=== PATIENT | male | born 1955 | race Caucasian/White ===

== ENCOUNTER → 2021-04-03 17:05 | Outpatient (CLI) | payer MEDICARE, SELFPAY ==
[2021-04-03 18:23] LABS: Basophils # 0.1 K/mm3 (0-0.2); Eosinophils # 0.6 K/mm3 (0.0-0.4); Eosinophils % 5.5 % (0.1-12.0); Hematocrit 39.2 % (42.0-52.0); Hemoglobin 12.1 g/dL (14.1-18.0); Lymphocytes # 2.2 K/mm3 (0.7-4.5); Lymphocytes % 21.5 % (10-50); Mean Corpuscular HGB Conc 30.8 g/dL (31.8-35.4); Mean Corpuscular Hemoglobin 26.3 pg (27.0-31.2); Mean Corpuscular Volume 85.4 fl (80-94); Monocytes # 0.7 K/mm3 (0.1-1.0); Monocytes % 6.7 % (1.7-9.3); Neutrophils # 6.6 K/mm3 (1.8-7.8); Neutrophils % 65.3 % (37.0-80.0); Platelet Count 310 K/mm3 (142-424); Red Blood Count 4.59 M/mm3 (4.60-6.20); Red Cell Distribution Width 18.1 % (11.5-17.5); White Blood Count 10.1 K/mm3 (4.8-10.8)
[2021-04-03 19:02] LABS: Alanine Aminotransferase 22 U/L (12-78); Albumin Level 4.5 g/dl (3.5-5.0); Alkaline Phosphatase 122 U/L (38-126); Anion Gap 17.4 mEq/L (5-15); Aspartate Amino Transferase 31 U/L (17-59); Bilirubin,Total 0.4 mg/dl (0.2-1.3); Blood Urea Nitrogen 18 mg/dl (9-20); Calcium 9.9 mg/dl (8.4-10.2); Carbon Dioxide 24 mmol/L (22.0-30.0); Chloride 105 mmol/L (98-107); Chol/HDL Ratio 3.6 (1-3.5); Cholesterol 140 mg/dl (140-200); Estimated Glomerular Filt Rate 74 ml/min (>60); GFR (African American) 90 ML/MIN (>60); Globulin 4.4 g/dL (1.3-3.2); Glucose 86 mg/dl (74-100); HDL Cholesterol 39 mg/dl (40-60); Potassium 4.4 mmoL/L (3.5-5.1); Sodium 142 mmol/L (136-145); Total Protein,Serum 8.9 g/dl (6.3-8.2); Triglycerides 140 mg/dl (30-150); VLDL Cholesterol 28 mg/dL (0-40)
[2021-04-03 19:12] LABS: Direct LDL Cholesterol 61.49 mg/dL (100-129)
[2021-04-03 19:23] LABS: Prothrombin Time 52.4 seconds (10.1-12.5)
[2021-04-03 21:29] LABS: Thyroid Stimulating Hormone 2.15 uIU/mL (0.465-4.68)
== END ==
PROVIDERS: Visit Provider Internal Medicine Adolescent Medicine
DX: E11.9 Type 2 diabetes mellitus without complications (principal); E78.5 Hyperlipidemia, unspecified; Z51.81 Encounter for therapeutic drug level monitoring; Z79.01 Long term (current) use of anticoagulants; Z95.2 Presence of prosthetic heart valve
CPT/HCPCS: 80053; 80061; 84443; 85025; 85610

== ENCOUNTER 2021-04-17 14:33 | Outpatient (CLI) | payer MEDICARE, SELFPAY ==
[2021-04-17 15:30] LABS: PHA INR Fingerstick 1.6 (0.9-1.1)
== END 2021-04-17 15:32 | disposition home or self-care (01) ==
LOC: ACC 14:43
PROVIDERS: PCP Internal Medicine Adolescent Medicine; Visit Provider Internal Medicine Adolescent Medicine
DX: Z51.81 Encounter for therapeutic drug level monitoring (principal); Z79.01 Long term (current) use of anticoagulants; I48.91 Unspecified atrial fibrillation; Z95.2 Presence of prosthetic heart valve
CPT/HCPCS: 85610; 99211; G0463

== ENCOUNTER 2021-04-21 14:29 | Outpatient (CLI) | payer MEDICARE, SELFPAY ==
[2021-04-21 15:02] LABS: PHA INR Fingerstick 2.4 (0.9-1.1)
== END 2021-04-21 15:13 | disposition home or self-care (01) ==
LOC: ACC 14:30
PROVIDERS: PCP Internal Medicine Adolescent Medicine; Visit Provider Internal Medicine Adolescent Medicine
DX: Z51.81 Encounter for therapeutic drug level monitoring (principal); Z79.01 Long term (current) use of anticoagulants
CPT/HCPCS: 85610; 99211; G0463

== ENCOUNTER 2021-04-28 14:24 | Outpatient (CLI) | payer MEDICARE, SELFPAY ==
[2021-04-28 15:46] LABS: PHA INR Fingerstick 2.4 (0.9-1.1)
== END 2021-04-28 15:52 | disposition home or self-care (01) ==
LOC: ACC 14:25
PROVIDERS: PCP Internal Medicine Adolescent Medicine; Visit Provider Internal Medicine Adolescent Medicine
DX: Z51.81 Encounter for therapeutic drug level monitoring (principal); Z79.01 Long term (current) use of anticoagulants
CPT/HCPCS: 85610; 99211; G0463

== ENCOUNTER → 2021-05-12 07:24 | Outpatient (CLI) | payer MEDICARE, SELFPAY ==
--- NOTE | 2021-05-12 07:28 | CT_ITS ---
PROCEDURE: CT LUNG SCREENING CLINICAL INDICATION: H/O NICOTINE DEPENDENCE Current smoker 100 pack year smoking history COMPARISON: No exams were available for comparison TECHNIQUE: The exam was performed on a GE Light Speed [address] scanner using 2.90 mGy CTDI. A low dose helical CT CHEST was performed on a multi-detector scanner. All CT scans at the facility use one or more dose reduction, viz: automated exposure control, ma/kV adjustment per patient size (including targeted exams where dose is matched to indication, i.e. head), or iterative reconstruction technique. The LDCT was performed in a facility that meets the criteria for the screening program. Data regarding this exam was submitted to ACR which is an approved registry. The order for this exam indicates that it came as a result of a lung cancer screening counseling shard decision-making visit that included all the elements required of such a visit including smoking cessation. The radiologist interpreting this exam meets the CMS criteria for the LDCT lung cancer screening program. The exam is reported using the Lung-RADS classification scale and reported to the ACR registry. NOTE: This study was performed for the specific purposes of lung cancer screening and is not an alternative to diagnostic chest CT. RADIATION DOSE: CTDI vol(CT dose Index-volume) = 2.90mG DLP (Dose Length Product) = 118.29 mGcm FINDINGS: COPD changes with paraseptal and centrilobular emphysema. There is scattered areas of scarring. Minimal bronchiectasis right lower lobe posteriorly in an area scarring/volume loss. No suspicious nodules. There is a mildly prominent precarinal lymph node at 1.7 x 1 cm. 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 OTHER FINDINGS: Motion artifact somewhat obscures evaluation of the upper abdomen. There are old right-sided rib fractures. IMPRESSION: Lung-RADS Category 2 Benign Appearance or Behavior Follow-up: Continue annual screening with LDCT in 12 months Mildly prominent precarinal lymph node. Follow-up suggested based on clinical parameters. Dictated by: Marc Gill MD 05/22/2021 08:32 Marc Gill MD in [place] 05/22/2021 08:32
--- NOTE | 2021-05-12 07:28 | US_ITS ---
PROCEDURE: US ABD. AORTA SCREENING CLINICAL INDICATION: H/O NICOTINE DEPENDENCE COMPARISON: CT CT LUNG SCREENING from 05/12/2021 FINDINGS: There is mild fusiform dilatation of the mid abdominal aorta at 2 cm. There is mild amount of atheromatous plaque within the abdominal aorta. The distal abdominal aorta measures 1.5 cm. Proximal common iliacs are unremarkable. IMPRESSION: Minimal dilatation of the mid abdominal aorta at 2 cm otherwise negative Dictated by: Marc Gill MD 05/12/2021 13:42 Marc Gill MD in [place] 05/12/2021 13:42
== END ==
PROVIDERS: PCP Internal Medicine Adolescent Medicine; Visit Provider Internal Medicine Adolescent Medicine
DX: Z87.891 Personal history of nicotine dependence (principal)
CPT/HCPCS: 71271; 76705

== ENCOUNTER 2021-05-12 14:26 | Outpatient (CLI) | payer MEDICARE, SELFPAY ==
[2021-05-12 18:00] LABS: PHA INR Fingerstick 2.6 (0.9-1.1)
== END 2021-05-12 18:02 | disposition home or self-care (01) ==
LOC: ACC 14:29
PROVIDERS: PCP Internal Medicine Adolescent Medicine; Visit Provider Internal Medicine Adolescent Medicine
DX: Z87.891 Personal history of nicotine dependence (principal); Z12.2 Encounter for screening for malignant neoplasm of respiratory organs; Z51.81 Encounter for therapeutic drug level monitoring; Z79.01 Long term (current) use of anticoagulants
CPT/HCPCS: 71271; 76705; 85610; 99211; G0463

== ENCOUNTER 2021-06-22 18:52 | Emergency (ER) | payer MEDICARE, SELFPAY ==
[2021-06-22 20:00] VITALS: BP 119/83; PULSE 97; RESP 18; TEMP 36.9; O2SAT 95; BMI 27.7
--- NOTE | 2021-06-22 20:45 | HMH.EDUTC ---
[facility] Disposition Clinical Impression: Exposure to COVID-19 virus Disposition: Home, Self-Care Condition on Discharge: Good Instructions: DI for COVID-19 (Suspected or Confirmed ), Preventing the Spread of Coronavirus Discharge Instructions Additional Instructions: *Monitor Temp, Over the counter Motrin or Tylenol as directed/as needed Tylenol every 4 hours and Motrin every 6 hours (as long as your family doctor has told you that you can take it) for fever or pain. and straight to ER if unable to lower temp less than 101.0 after medication given Follow up IMMEDIATELY for new or worsening symptoms or no Noticeable improvement over the next 48-72 hours. 911 for difficulty breathing or swallowing You were tested for today for COVID19 your test result should be back in the next 24-48 hours, you was given handout on [facility] portal where you can review your results if you do not have internet access you may call the [facility] You was given a handout with instructions for Self Quarantine and Self isolation for while you wait on test results and what to do if they are positive If you are positive the Health Dept will be contacting you also Make sure to take your Vitamins Vit. C Vit D and Zinc if you can take them Referrals: Mynor Hoffman MD [Primary Care Provider] - As needed Time of Disposition: 20:47 Medical Decision Making - Roman Inquiry Pt receiving controlled substance: No Roman was queried for this patient: No Vital Signs: 06/22/21 20:00 Temperature 98.4 F Temperature Source Oral Pulse Rate [Right Brachial] 97 H Respiratory Rate 18 Blood Pressure [Right Arm] 119/83 Blood Pressure Mean [Right Arm] 95 Blood Pressure Source [Right Arm] Automatic Cuff Blood Pressure Position [Right Arm] Sitting 02 Sat by Pulse Oximetry 95 Oxygen Delivery Method Room Air Orders (Tests/Meds): ORDERS Category Date Time Status Covid-19 Nasal PCR ([facility]) Routine Lab 06/22/21 20:34 Received [facility] HPI - General Stated complaint: covid test. BOURNE, awa, runny nose Time Seen by Provider: 06/22/21 20:45 Mode of Arrival: Ambulatory Source of Information: Patient Limitations: No Limitations Description of Symptoms (Recalled from Triage Doc. by RN): COVID TEST D/T EXPOSURE. HEENT Symptoms (Recalled from RN notes): No Resp Symptoms (Recalled from RN notes): No Skin Symptoms (Recalled from RN notes): No MS Symptoms (Recalled from RN notes): No Functional Status (Recalled from RN notes): wnl - History of Present Illness Provider Complaint: Patient states that several people in the house have tested positive for COVID State that he is not having any symptoms but wanted to get tested due to others being positive - Related Data Home Medications Medication Instructions Recorded Confirmed Acetaminophen [Tylenol 500mg 1,000 mg PO BID 04/17/21 04/17/21 tablet] Furosemide [Lasix 20mg tab] 10 mg PO DAILY 04/17/21 04/17/21 Metoprolol Tartrate [Lopressor 12.5 mg PO BID 04/17/21 04/17/21 25mg tablet] Sitagliptin Phosphate [Januvia 50 mg PO DAILY 04/17/21 04/17/21 50mg tablet] Warfarin Sodium [Coumadin 5mg 10 mg PO DAILY 04/17/21 04/17/21 tablet] buPROPion HCL [Wellbutrin XL] 300 mg PO DAILY 04/17/21 04/17/21 Allergies Allergy/AdvReac Type Severity Reaction Status Date / Time No Known Allergies Allergy Verified 06/22/21 20:34 - Worker's Comp Is this a Worker's Comp case?: No [facility] History - Hepatitis A Screen Drug use history?: No High risk sexual behaviors?: No History of sexually transmitted infection?: No Currently employed?: No Childcare worker?: No Do you have indoor plumbing?: Yes Do you have electricity?: Yes Attestation statement:: This patient has been screened for Hepatitis A risk factors. ROS Obtained: Yes All systems reviewed & no additional complaints, Yes Systems reviewed as appropriate & no additional complaints - Constitutional Constitutional: Reports system reviewed and n
[2021-06-22 20:51] VITALS: BP 119/83; PULSE 97; RESP 18; TEMP 36.9; O2SAT 95
== END 2021-06-22 20:57 | disposition home or self-care (01) ==
PROVIDERS: Emergency Provider Nurse Practitioner; PCP Internal Medicine Adolescent Medicine
DX: U07.1 COVID-19 (principal)
CPT/HCPCS: G0463; 99202; U0003

== ENCOUNTER 2021-07-03 12:23 | Inpatient (IN) | payer MEDICARE, SELFPAY ==
[2021-07-03] VITALS (18 sets, daily range): BP systolic 92–149; BP diastolic 50–99; PULSE 103–144; RESP 20–40; TEMP 37.7–37.9; O2SAT 87–93; BMI 25.1; BMI 26.4; BMI 28.6
--- NOTE | 2021-07-03 12:18 | ECG_ITS ---
APPROVED REPORT Exam: Resting ECG HR:148 bpm ECG Measurements Heart Rate 148 AXES QRSd 86 QRS -46 QT 254 T 44 QTc 398 Conclusion Atrial fibrillation with rapid ventricular response with premature ventricular or aberrantly conducted complexes Left axis deviation Pulmonary disease pattern Nonspecific ST and T wave abnormality Abnormal ECG Electronically signed by : Mynor Hoffman MD 07/04/2021 17:35:41
--- NOTE | 2021-07-03 12:30 | XR_ITS ---
PROCEDURE: XR CHEST PORTABLE CLINICAL HISTORY: sob COMPARISON: CT CT LUNG SCREENING from 05/12/2021 FINDINGS: Prior median sternotomy with aortic valve replacement. Cardiomegaly without failure. Small area of increased density is present in the right lung base suggesting an area of infiltrate. Suggest following till clear . There is an old fracture the right 6th rib IMPRESSION: Right basilar infiltrate Dictated by: Marc Gill MD 07/03/2021 14:03 Marc Gill MD in [place] 07/03/2021 14:03
[2021-07-03 12:38] LABS: Basophils # 0.1 K/mm3 (0-0.2); Basophils % 0.5 % (0.1-2.0); Eosinophils # 0.1 K/mm3 (0.0-0.4); Eosinophils % 1.1 % (0.1-12.0); Hematocrit 44.6 % (42.0-52.0); Hemoglobin 14.9 g/dL (14.1-18.0); Lymphocytes # 0.5 K/mm3 (0.7-4.5); Lymphocytes % 3.7 % (10-50); Mean Corpuscular HGB Conc 33.5 g/dL (31.8-35.4); Mean Corpuscular Hemoglobin 29.7 pg (27.0-31.2); Mean Corpuscular Volume 88.5 fl (80-94); Mean Platelet Volume 9.5 fl (7.4-10.4); Monocytes # 0.4 K/mm3 (0.1-1.0); Monocytes % 3.1 % (1.7-9.3); Neutrophils # 12.2 K/mm3 (1.8-7.8); Neutrophils % 91.7 % (37.0-80.0); Platelet Count 213 K/mm3 (142-424); Red Blood Count 5.03 M/mm3 (4.60-6.20); Red Cell Distribution Width 17.5 % (11.5-17.5); White Blood Count 13.3 K/mm3 (4.8-10.8)
[2021-07-03 12:39] LABS: MANUAL DIFFERENTIAL MANUAL DIFFERENTIAL (MANUAL DIFF)
[2021-07-03 12:55] LABS: Eosinophils % 3 % (0-3); Lymphocytes % 8 % (10-50); Monocytes % 2 % (2-9); Neutrophils % 83 % (42-76); Platelet Estimate Normal; Total Cells Counted 100
[2021-07-03 12:56] LABS: Hypochromasia 1+
--- NOTE | 2021-07-03 12:57 | HMH.EDGENADL ---
ED Disposition Clinical Impression: Pneumonia due to COVID-19 virus, Supratherapeutic INR, Atrial fibrillation with RVR Pancreatitis Qualifiers: Chronicity: acute Pancreatitis type: other Acute pancreatitis complication: unspecified Qualified Code(s): K85.80 - Other acute pancreatitis without necrosis or infection CHF exacerbation Qualifiers: Heart failure type: unspecified Qualified Code(s): I50.9 - Heart failure, unspecified Disposition: Admitted As Inpatient Condition on Discharge: Fair Time of Disposition: 18:13 - Critical Care Critical Care Time: Yes Attestation: On , the high probability of a clinically significant, sudden or life threatening deterioration of the following system(s) required my full and direct attention, intervention and personal management. The time I documented below is in addition to time spent performing reported procedures but includes the following listed in this critical care notation. Total Critical Care Time: 35 Vital system(s) involved:: Circulatory Failure, Respiratory Failure My critical care processes included: Assessment & monitoring of V/S, Initial and Re-exams, Data Review/Interpretation, Coordinating Care, Medication Orders and management, Documentation Medical Decision Making - Medical Records Medical records reviewed: Yes: I reviewed the patient's medical records. - Roman Inquiry Pt receiving controlled substance: No Vital Signs: 07/03/21 12:23 07/03/21 13:00 07/03/21 13:30 Temperature 100.3 F H Temperature Source Oral Pulse Rate 120 H 122 H Pulse Rate [Right] 144 H Respiratory Rate 32 H 32 H 36 H Blood Pressure 125/79 121/99 H Blood Pressure [Right Arm] 143/77 H Blood Pressure Mean 94 106 Blood Pressure Mean [Right Arm] 99 02 Sat by Pulse Oximetry 93 L 92 L 92 L Oxygen Delivery Method Room Air Oxygen Flow Rate (LPM) 07/03/21 13:45 07/03/21 14:00 07/03/21 14:15 Temperature Temperature Source Pulse Rate 122 H 132 H 134 H Pulse Rate [Right] Respiratory Rate 38 H 34 H 34 H Blood Pressure 142/88 H 145/79 H 133/86 Blood Pressure [Right Arm] Blood Pressure Mean 102 101 108 Blood Pressure Mean [Right Arm] 02 Sat by Pulse Oximetry 92 L 91 L 91 L Oxygen Delivery Method Oxygen Flow Rate (LPM) 07/03/21 16:46 Temperature Temperature Source Pulse Rate 125 H Pulse Rate [Right] Respiratory Rate 40 H Blood Pressure 135/82 Blood Pressure [Right Arm] Blood Pressure Mean Blood Pressure Mean [Right Arm] 02 Sat by Pulse Oximetry 91 L Oxygen Delivery Method Nasal Cannula Oxygen Flow Rate (LPM) 4 - Lab Data Lab results reviewed: Yes: I reviewed the patient's lab results. Lab Results 07/03/21 12:25: WBC 13.3 H, RBC 5.03, Hgb 14.9, Hct 44.6, MCV 88.5, MCH 29.7, MCHC 33.5, RDW 17.5, Plt Count 213, MPV 9.5, Neut % (Auto) 91.7 H, Lymph % (Auto) 3.7 L, [place] % (Auto) 3.1, Eos % (Auto) 1.1, Baso % (Auto) 0.5, Neut # (Auto) 12.2 H, Lymph # (Auto) 0.5 L, [place] # (Auto) 0.4, Eos # (Auto) 0.1, Baso # (Auto) 0.1, Total Counted 100, Neutrophils % (Manual) 83 H, Band Neutrophils % 4.0, Lymphocytes % (Manual) 8 L, Monocytes % (Manual) 2, Eosinophils % (Manual) 3, Platelet Estimate Normal, Hypochromasia 1+ 07/03/21 13:18: Sodium 138, Potassium 4.0, Chloride 104, Carbon Dioxide 21 L, Anion Gap 17.0 H, BUN 28 H, Creatinine 1.20, Estimated Creat Clear 72, Estimated GFR 60, Est GFR ( Amer) 73, Glucose 146 H, Calcium 8.9, Total Bilirubin 0.7, AST 68 H, ALT 36, Alkaline Phosphatase 91, Total Protein 8.0, Albumin 3.7, Globulin 4.3 H, Albumin/Globulin Ratio 0.9 L, Lipase 406 H 07/03/21 13:18: Troponin I 0.03 07/03/21 13:31: SARS-CoV-2 (PCR) Detected A, Influenza A Untype (PCR) Not detected, Influenza Type B (PCR) Not detected 07/03/21 13:40: PT 46.1 H, INR 4.36 H 07/03/21 14:00: NT-Pro-B Natriuret Pep 1370 H Result diagrams: 07/03/21 12:25 07/03/21 13:18 Orders (Tests/Meds): ED MEDICATIONS Generic Name Dose Route Start Last Admin
[2021-07-03 13:31] LABS: Alanine Aminotransferase 36 U/L (12-78); Albumin Level 3.7 g/dl (3.5-5.0); Albumin/Globulin Ratio 0.9 (1.1-1.8); Alkaline Phosphatase 91 U/L (38-126); Aspartate Amino Transferase 68 U/L (17-59); Bilirubin,Total 0.7 mg/dl (0.2-1.3); Blood Urea Nitrogen 28 mg/dl (9-20); Calcium 8.9 mg/dl (8.4-10.2); Carbon Dioxide 21 mmol/L (22.0-30.0); Chloride 104 mmol/L (98-107); Creatinine Clearance Estimated 72 mL/min (50-200); Estimated Glomerular Filt Rate 60 ml/min (>60); GFR (African American) 73 ML/MIN (>60); Globulin 4.3 g/dL (1.3-3.2); Glucose 146 mg/dl (74-100); Lipase 406 U/L (23-300); Sodium 138 mmol/L (136-145)
[2021-07-03 13:53] LABS: Influenza A, PCR Not Detected (NotDetected); Influenza B, PCR Not Detected (NotDetected)
--- NOTE | 2021-07-03 13:58 | CT_ITS ---
PROCEDURE: CT ANGIO CHEST PE PROTOCOL CLINCIAL INDICATION: ams Covid19 COMPARISON: CT CT LUNG SCREENING from 05/12/2021 TECHNIQUE: IV Contrast: 70ML Isovue 370 Axial images obtained with sagittal and coronal reformats. All CT scans at the facility use one or more dose reduction, viz: automated exposure control, ma/kV adjustment per patient size (including targeted exams where dose is matched to indication, i.e. head), or iterative reconstruction technique. FINDINGS: HEART AND MEDIASTINAL STRUCTURES: Mildly enlarged mediastinal lymph nodes measuring up to 2.7 by 1.8 cm in the precarinal region and 2.9 x 2 cm in the subcarinal area. No evidence of pulmonary embolus, aortic aneurysm, or aortic dissection.. Prior aortic valve replacement. Coronary artery calcifications are present. LUNGS AND PLEURAL SPACES: Centrilobular and paraseptal emphysema. There is dense consolidation in the lower lobes posteriorly and inferiorly on both sides as well as the superior segment of the right lower lobe, and a small area of consolidation in the left upper lobe centrally. No effusions. BONY STRUCTURES: Old fractures involve the right 4th through 10th ribs. UPPER ABDOMEN: Unremarkable. ADDITIONAL FINDINGS: No other significant abnormalities. IMPRESSION: Bilateral pneumonia involving the superior segment of the right lower lobe and the lung bases posteriorly on both sides as well as left perihilar region with COPD and centrilobular and paraseptal emphysema. The overall findings are not typical for what we normally see for Covid19 pneumonia although that entity is a consideration. Aspiration pneumonia would be a consideration as well. Mediastinal adenopathy Dictated by: Marc Gill MD 07/03/2021 17:02 Marc Gill MD in [place] 07/03/2021 17:02
--- NOTE | 2021-07-03 13:58 | CT_ITS ---
PROCEDURE: CT ABDOMEN PELVIS W CON CLINICAL INDICATION: elevated lipase COMPARISON: CT CT ANGIO CHEST PE PROTOCOL from 07/03/2021 TECHNIQUE: IV Contrast: 75ML Isovue 370 Oral Contrast None Axial images obtained with sagittal and coronal reformats. All CT scans at the facility use one or more dose reduction, viz: automated exposure control, ma/kV adjustment per patient size (including targeted exams where dose is matched to indication, i.e. head), or iterative reconstruction technique. FINDINGS: Cardiomegaly. Prior aortic valve replacement. Coronary artery calcifications and/or stents noted as well as mitral valve annular calcification. Consolidation is present in both lung bases posteriorly. Prior cholecystectomy. Beam hardening artifact is present from the patient's arms down by his side. Left adrenal gland is slightly enlarged maintaining an adrenal form shape. The right adrenal gland is unremarkable. There is mild stranding of the fat posterior to the tail the pancreas which may indicate mild pancreatitis. No evidence of pancreatic necrosis.. No renal or ureteral calculi. No hydrocephalus. The appendix is not clearly delineated. No evidence of appendicitis. Fluid-filled loops of small and large bowel are present which may indicate enterocolitis or diarrhea disease. No pelvic mass or abnormal fluid collection. No acute bony anomalies. There is mild dilatation of the infrarenal abdominal aorta at the L3-L4 level at 3 cm. No acute bony anomalies. There is fusion of the SI joints. Osteoarthritic changes are present in the hips IMPRESSION: Mild stranding of the fat posterior to the tail the pancreas which may indicate mild pancreatitis. Fluid-filled loops of large and small bowel nondistended which may indicate intra colitis/diarrhea disease Bilateral lower lobe pneumonia Other nonacute findings as described above Dictated by: Marc Gill MD 07/03/2021 17:12 Macr Gill MD in [place] 07/03/2021 17:12
--- NOTE | 2021-07-03 14:01 | PC.NURSE ---
DILTIAZEM GTT TITRATED UP TO 10MG/HR.
[2021-07-03 14:14] LABS: INR 4.36 (0.9-1.1)
--- NOTE | 2021-07-03 14:14 | PC.NURSE ---
LAB CALLED WITH CRITICALS OF PT 46.1 AWARE
--- NOTE | 2021-07-03 14:15 | PC.NURSE ---
RAD CALLED & NOTIFIED OF NEW CTA LINE TO [facility].
[2021-07-03 14:16] LABS: Prothrombin Time 46.1 seconds (10.1-12.5)
--- NOTE | 2021-07-03 14:20 | PC.NURSE ---
CRITICAL LAB VALUE PTINR, DR TY NOTIFIED.
[2021-07-03 14:23] LABS: Troponin I 0.03 ng/ml (0.00-0.034)
--- NOTE | 2021-07-03 14:29 | PC.NURSE ---
PT TO CT SCANNER VIA STRETCHER AT THIS TIME.
[2021-07-03 14:48] LABS: Coronavirus 19, PCR Detected (NotDetected)
--- NOTE | 2021-07-03 15:45 | PC.NURSE ---
3RD PIV PLACED IN RIGHT AC FOR CTA.
--- NOTE | 2021-07-03 16:02 | PC.NURSE ---
PT TO CT SCANNER
--- NOTE | 2021-07-03 16:35 | PC.NURSE ---
PT BACK FROM CT
--- NOTE | 2021-07-03 16:48 | PC.NURSE ---
pt maxed out on diltiazem gtt at 15mg/hr, oxygen 91% on 4L nasal cannula, Dr. Flores notified.
[2021-07-03 17:25] LABS: NT Pro Brain Natriuretic Pep. 1370 pg/mL (0-125)
--- NOTE | 2021-07-03 17:40 | PC.NURSE ---
speaking with Dr Alvarado
--- NOTE | 2021-07-03 17:48 | PC.NURSE ---
Speaking to MD about admission
[2021-07-03 17:58] LABS: Troponin I 0.05 ng/ml (0.00-0.034)
--- NOTE | 2021-07-03 18:28 | PC.NURSE ---
romana reyna placed per dr. ruiz
--- NOTE | 2021-07-03 18:40 | PC.NURSE ---
REPORT GIVEN MALATHI.
[2021-07-03 19:10] LABS: C-Reactive Protein 181.7 mg/L (0-4)
[2021-07-03 19:37] LABS: Ferritin 410 ng/ml (17.9-464)
--- NOTE | 2021-07-03 19:40 | PC.NURSE ---
PT ARRIVED TO FLOOR VIA STRETCHER FROM ED W/STAFF AT 1939
[2021-07-03 21:26] LABS: Troponin I 0.08 ng/ml (0.00-0.034)
[2021-07-03 22:18] LABS: POC Glucose,Bedside 111 (70-110)
[2021-07-04] VITALS (22 sets, daily range): BP systolic 73–134; BP diastolic 39–86; PULSE 66–120; RESP 18–24; TEMP 36.4–37; O2SAT 90–96; BMI 29.3
--- NOTE | 2021-07-04 06:05 | PC.NURSE ---
pt unable to confirm medication doses and when last taken
[2021-07-04 06:35] LABS: POC Glucose,Bedside 119 (70-110)
--- NOTE | 2021-07-04 06:56 | PC.NURSE ---
pt alert only to self, pt not able to provide much information for admission, has been awake most of shift and has remained on 6L NC t/o shift with sats 88-95% 1940 cardizem drip at 15 mL/hr upon arrival to floor 0000 cardizem drip increased to 20 mL/hr 0230 cardizem drip decreased back to 15 mL/hr 0500 cardizem drip decrased to 10 mL/hr
[2021-07-04 07:09] LABS: Basophils # 0.1 K/mm3 (0-0.2); Basophils % 0.4 % (0.1-2.0); Lymphocytes # 0.6 K/mm3 (0.7-4.5); Lymphocytes % 3.3 % (10-50); Mean Corpuscular HGB Conc 32.4 g/dL (31.8-35.4); Mean Corpuscular Hemoglobin 28.5 pg (27.0-31.2); Mean Corpuscular Volume 88.1 fl (80-94); Mean Platelet Volume 9.7 fl (7.4-10.4); Monocytes # 0.4 K/mm3 (0.1-1.0); Monocytes % 2.4 % (1.7-9.3); Neutrophils # 16.6 K/mm3 (1.8-7.8); Neutrophils % 93.9 % (37.0-80.0); Platelet Count 212 K/mm3 (142-424); Red Blood Count 4.54 M/mm3 (4.60-6.20); Red Cell Distribution Width 18.3 % (11.5-17.5); White Blood Count 17.6 K/mm3 (4.8-10.8)
[2021-07-04 07:10] LABS: Alanine Aminotransferase 33 U/L (12-78); Albumin Level 3.2 g/dl (3.5-5.0); Albumin/Globulin Ratio 0.8 (1.1-1.8); Alkaline Phosphatase 69 U/L (38-126); Aspartate Amino Transferase 73 U/L (17-59); Bilirubin,Total 0.9 mg/dl (0.2-1.3); Blood Urea Nitrogen 40 mg/dl (9-20); Calcium 8.7 mg/dl (8.4-10.2); Carbon Dioxide 16 mmol/L (22.0-30.0); Chloride 105 mmol/L (98-107); Creatinine Clearance Estimated 56 mL/min (50-200); Estimated Glomerular Filt Rate 40 ml/min (>60); GFR (African American) 49 ML/MIN (>60); Glucose 113 mg/dl (74-100); Sodium 137 mmol/L (136-145); Total Protein,Serum 7.2 g/dl (6.3-8.2)
--- NOTE | 2021-07-04 07:16 | HMH.HP ---
*Admission Date: 07/03/21 *Chief complaint: Short of breath, COVID *History of present illness: Mr. Lynne is a 66-year-old male with multiple comorbidities who was sent to the ER from home yesterday via EMS due to worsening diarrhea, debility, shortness of breath. Of note, he was initially diagnosed with COVID-19 on 06/22/21 along with several other family members. He presented to the ER with no family however in speaking to his stepdaughter, he has been dealing with cough, poor appetite, diarrhea and dehydration at home. Was falling out of his chair and became too much for her to care for at home. This led to her having EMS bring him to the ER for further assessment. For some time they have questioned the need for him to be placed in a fci given his baseline debility and dependence on motorized wheelchair for movement. On arrival to the ER he was found to be in A. fib with RVR, initial labs concerning for pancreatitis, sepsis, Covid positive still. Treated with diltiazem drip and IV bolus. After labs returned, found to have elevated BNP so he was diuresed x1. Chest CT and CTA both obtained, findings revealed focal pneumonia concerning for superimposed bacterial pneumonia on Covid pneumonia. Admitted to medicine for further management. On assessment this morning, he is pleasant and oriented to self. States he wants everything done to keep him alive (full code). Denies nausea or vomiting. Denies abdominal pain or chest pain that is acute. Having diarrhea this morning on exam. Saturations in the mid 90s on 6 L nasal cannula oxygen. Heart rate in the 90s to low 100s on diltiazem drip. Per review of chart and discussion with family, patient previously on metoprolol for heart rate control. Has a mechanical valve, on warfarin with goal INR 2.5-3.5. Supratherapeutic on admission. [facility] History I have reviewed the patient's past medical history: Yes Medical History: Reports:: Atrial Fibrillation, Congestive Heart Failure, Chronic Obstructive Pulmonary Disease (COPD), Coronary Artery Disease, Dementia, Diabetes Mellitus Type 2 Denies:: Cancer, Diabetes Mellitus Type 1, Home Oxygen, MRSA *Have you ever received a pneumonia vaccine?: No *Have you received a flu vaccine this season?: No Amputation: No - *Social History Smoking Status: Former smoker # Packs/Day (cigarettes): 1 Alcohol Intake: never *Occupational Status:: retired *Travel in the last 8 weeks: None Family Hx:: Unable to obtain Review of Systems - Review of Systems Review of systems:: pertinent systems reviewed and negative unless documented below (14 point review of systems performed, pertinent positives and negatives as per HPI) Meds Home Medications Medication Instructions Recorded Confirmed Type Warfarin Sodium [Coumadin 5mg 10 mg PO DAILY 04/17/21 07/04/21 History tablet] buPROPion HCL [Wellbutrin XL] 300 mg PO DAILY 04/17/21 07/04/21 History Atorvastatin Calcium [Lipitor 40mg 40 mg PO HS 07/03/21 07/04/21 History Tab] Furosemide [Furosemide 20mg Tab*] 20 mg PO DAILY 07/03/21 07/04/21 History Sitagliptin Phosphate [Januvia 100 mg PO DAILY 07/03/21 07/04/21 History 100mg tablet] Fluticasone/Umeclidin/Vilanter 1 puff IH DAILY 07/04/21 07/04/21 History [Trelegy Ellipta 100-62.5-25] lisinopriL [Zestril 10mg Tab] 10 mg PO DAILY 07/04/21 07/04/21 History Allergies Allergy/AdvReac Type Severity Reaction Status Date / Time No Known Allergies Allergy Verified 07/04/21 06:02 Exam Vital signs and Labs for Last 24 Hours: Temp Pulse Resp BP Pulse Ox 97.7 F 93 H 22 88/55 L 93 L 07/04/21 04:00 07/04/21 06:00 07/04/21 06:00 07/04/21 06:00 07/04/21 06:00 Laboratory Results - last 24 hr 07/03/21 12:25: WBC 13.3 H, RBC 5.03, Hgb 14.9, Hct 44.6, MCV 88.5, MCH 29.7, MCHC 33.5, RDW 17.5, Plt Count 213, MPV 9.5, Neut % (Auto) 91.7 H, Lymph % (Auto) 3.7 L, Sebastian % (Auto) 3.1, Eos % (Auto) 1.1, Baso % (Auto) 0.5, Neut # (Auto) 12
[2021-07-04 07:26] LABS: MANUAL DIFFERENTIAL MANUAL DIFFERENTIAL (MANUAL DIFF)
[2021-07-04 07:27] LABS: Hemoglobin 12.9 g/dL (14.1-18.0)
--- NOTE | 2021-07-04 07:50 | HMH.PHAVTE ---
[facility] Pharmacy VTE Monitoring - Patient Demographics Admission date: 07/04/21 Report Date: 07/04/21 Time: 07:51 Allergies/Adverse Reactions: Patient Allergies No Known Allergies Allergy (Verified 07/04/21 06:02) Height: 1.8 m Weight: 95.1 kg Patient Problems: Current Active Problems Pneumonia due to COVID-19 virus (Acute) Pancreatitis (Acute) CHF exacerbation (Acute) Supratherapeutic INR (Acute) Atrial fibrillation with RVR (Acute) Sepsis (Acute) ANISH (acute kidney injury) (Acute) Dementia (Acute) NSTEMI (non-ST elevated myocardial infarction) (Acute) - VTE Risk Labs: VTE Related Lab Results Hgb 12.9 g/dL (14.1-18.0) L D 07/04/21 05:26 Hct 40.0 % (42.0-52.0) L 07/04/21 05:26 Plt Count 212 K/mm3 (142-424) 07/04/21 05:26 PT 46.1 seconds (10.1-12.5) H 07/03/21 13:40 INR 4.36 (0.9-1.1) H 07/03/21 13:40 BUN 40 mg/dl (9-20) H D 07/04/21 05:26 Creatinine 1.70 mg/dl (0.66-1.25) H D 07/04/21 05:26 Estimated Creat Clear 56 mL/min (50-200) 07/04/21 05:26 VTE Score: 7 VTE Risk Level: Moderate Risk - Prophylaxis VTE Prophylaxis Ordered?: Yes Types of VTE Prophylaxis: IPCS Thigh High Location of Applied Device: Bilateral Lower Extremeties
[2021-07-04 08:20] LABS: Lymphocytes % 8 % (10-50); Monocytes % 4 % (2-9); Neutrophils % 88 % (42-76); Nucleated Red Blood Cells 1; Total Cells Counted 100
[2021-07-04 08:21] LABS: Anisocytosis 1+; Hypochromasia 2+; Microcytosis 1+; Platelet Estimate Normal
[2021-07-04 11:59] LABS: POC Glucose,Bedside 210 (70-110)
--- NOTE | 2021-07-04 14:47 | PC.NURSE ---
Patient given sodium chloride neb for sputum induction but was unable to produce a sputum sample
[2021-07-04 17:53] LABS: INR 7.27 (0.9-1.1); Prothrombin Time 74.1 seconds (10.1-12.5)
--- NOTE | 2021-07-04 18:13 | PC.NURSE ---
Pt is alert to self. Crackles and rhonchi noted to lung johnson. He has reyna draining straw colored urine. Small open area to gluteal cleft, dressing in place. No change since morning assessment.
--- NOTE | 2021-07-04 18:30 | PC.NURSE ---
Order for vitamin k placed per/by Dr Meadows under my sign-on
[2021-07-04 18:37] LABS: Chloride 102 mmol/L (98-107); Potassium 3.9 mmoL/L (3.5-5.1); Sodium 135 mmol/L (136-145)
[2021-07-04 18:40] LABS: Alanine Aminotransferase 38 U/L (12-78); Albumin Level 3.1 g/dl (3.5-5.0); Albumin/Globulin Ratio 0.8 (1.1-1.8); Alkaline Phosphatase 73 U/L (38-126); Anion Gap 15.9 mEq/L (5-15); Aspartate Amino Transferase 74 U/L (17-59); Bilirubin,Total 0.6 mg/dl (0.2-1.3); Blood Urea Nitrogen 46 mg/dl (9-20); Calcium 8.6 mg/dl (8.4-10.2); Carbon Dioxide 21 mmol/L (22.0-30.0); Creatinine Clearance Estimated 59 mL/min (50-200); Estimated Glomerular Filt Rate 43 ml/min (>60); GFR (African American) 52 ML/MIN (>60); Globulin 3.9 g/dL (1.3-3.2); Glucose 175 mg/dl (74-100)
--- NOTE | 2021-07-04 18:41 | PC.NURSE ---
Give PM dose of metoprolol unless systolic is less than [address] Meadows
[2021-07-04 20:31] LABS: POC Glucose,Bedside 171 (70-110)
[2021-07-05] VITALS (7 sets, daily range): BP systolic 83–120; BP diastolic 49–71; PULSE 70–89; RESP 20–24; TEMP 36.4–36.8; O2SAT 91–94; BMI 28.6
[2021-07-05 01:57] LABS: POC Glucose,Bedside 293 (70-110)
--- NOTE | 2021-07-05 04:15 | PC.NURSE ---
A&OX1. PT HAS HAD NO C/O THUS FAR. F/C DRAINING DARK YELLOW URINE. VSS WILL CONTINUE TO MONITOR.
[2021-07-05 05:39] LABS: POC Glucose,Bedside 131 (70-110)
--- NOTE | 2021-07-05 06:57 | PC.NURSE ---
ASSIGNMENT ACCEPTED UNDER DURESS.
[2021-07-05 08:05] LABS: Basophils # 0.1 K/mm3 (0-0.2); Basophils % 0.6 % (0.1-2.0); Eosinophils % 0.2 % (0.1-12.0); Hematocrit 39.6 % (42.0-52.0); Hemoglobin 12.6 g/dL (14.1-18.0); Lymphocytes # 0.7 K/mm3 (0.7-4.5); Lymphocytes % 5.8 % (10-50); Mean Corpuscular HGB Conc 31.8 g/dL (31.8-35.4); Mean Corpuscular Hemoglobin 27.9 pg (27.0-31.2); Mean Corpuscular Volume 87.5 fl (80-94); Monocytes # 0.5 K/mm3 (0.1-1.0); Monocytes % 3.8 % (1.7-9.3); Neutrophils # 11.5 K/mm3 (1.8-7.8); Neutrophils % 89.6 % (37.0-80.0); Platelet Count 172 K/mm3 (142-424); Red Blood Count 4.52 M/mm3 (4.60-6.20); Red Cell Distribution Width 18.7 % (11.5-17.5); White Blood Count 12.8 K/mm3 (4.8-10.8)
[2021-07-05 08:08] LABS: MANUAL DIFFERENTIAL MANUAL DIFFERENTIAL (MANUAL DIFF)
[2021-07-05 08:11] LABS: Alanine Aminotransferase 29 U/L (12-78); Albumin Level 2.9 g/dl (3.5-5.0); Albumin/Globulin Ratio 0.8 (1.1-1.8); Alkaline Phosphatase 79 U/L (38-126); Anion Gap 13.6 mEq/L (5-15); Aspartate Amino Transferase 64 U/L (17-59); Bilirubin,Total 0.8 mg/dl (0.2-1.3); Blood Urea Nitrogen 42 mg/dl (9-20); Calcium 8.7 mg/dl (8.4-10.2); Carbon Dioxide 18 mmol/L (22.0-30.0); Chloride 109 mmol/L (98-107); Creatinine Clearance Estimated 84 mL/min (50-200); Estimated Glomerular Filt Rate 67 ml/min (>60); GFR (African American) 81 ML/MIN (>60); Globulin 3.7 g/dL (1.3-3.2); Glucose 107 mg/dl (74-100); Potassium 4.6 mmoL/L (3.5-5.1); Sodium 136 mmol/L (136-145); Total Protein,Serum 6.6 g/dl (6.3-8.2)
[2021-07-05 08:31] LABS: Prothrombin Time 18.1 seconds (10.1-12.5)
[2021-07-05 08:33] LABS: INR 1.59 (0.9-1.1)
[2021-07-05 08:46] LABS: Anisocytosis 1+; Hypochromasia 1+; Lymphocytes % 4 % (10-50); Microcytosis 1+; Monocytes % 2 % (2-9); Neutrophils % 94 % (42-76); Nucleated Red Blood Cells 1; Platelet Estimate Normal; Total Cells Counted 100
--- NOTE | 2021-07-05 08:46 | HMH.ACPN2 ---
Internal Medicine - PN: Subj *Date: 07/05/21 *Time: 08:46 Interval history: Overall patient did well overnight, has actually been on room air with O2 saturations of 91%. He is eating some of his breakfast with assistance, remains very weak, and feels very tired. Exam Vital signs and Labs for Last 24 Hours: Temp Pulse Resp BP Pulse Ox 97.5 F L 78 20 90/63 L 91 L 07/05/21 04:00 07/05/21 04:00 07/05/21 04:00 07/05/21 04:00 07/05/21 04:00 Laboratory Results - last 24 hr 07/04/21 11:49: POC Glucose 210 H 07/04/21 16:34: POC Glucose 293 H 07/04/21 16:49: PT 74.1 H, INR 7.27 H 07/04/21 18:21: Sodium 135 L, Potassium 3.9, Chloride 102, Carbon Dioxide 21 L, Anion Gap 15.9 H, BUN 46 H, Creatinine 1.60 H, Estimated Creat Clear 59, Estimated GFR 43 L, Est GFR ( Amer) 52 L, Glucose 175 H D, Calcium 8.6, Total Bilirubin 0.6, AST 74 H, ALT 38, Alkaline Phosphatase 73, Total Protein 7.0, Albumin 3.1 L, Globulin 3.9 H, Albumin/Globulin Ratio 0.8 L 07/04/21 20:20: POC Glucose 171 H 07/05/21 05:15: POC Glucose 131 H 07/05/21 07:32: WBC 12.8 H D, RBC 4.52 L, Hgb 12.6 L, Hct 39.6 L, MCV 87.5, MCH 27.9, MCHC 31.8, RDW 18.7 H, Plt Count 172, MPV 10.0, Neut % (Auto) 89.6 H, Lymph % (Auto) 5.8 L, [place] % (Auto) 3.8, Eos % (Auto) 0.2, Baso % (Auto) 0.6, Neut # (Auto) 11.5 H, Lymph # (Auto) 0.7, [place] # (Auto) 0.5, Eos # (Auto) 0.0, Baso # (Auto) 0.1 07/05/21 07:32: Magnesium 2.0 07/05/21 07:32: Sodium 136, Potassium 4.6, Chloride 109 H, Carbon Dioxide 18 L, Anion Gap 13.6, BUN 42 H, Creatinine 1.10 D, Estimated Creat Clear 84, Estimated GFR 67, Est GFR ( Amer) 81 D, Glucose 107 H D, Calcium 8.7, Total Bilirubin 0.8, AST 64 H, ALT 29, Alkaline Phosphatase 79, Total Protein 6.6, Albumin 2.9 L, Globulin 3.7 H, Albumin/Globulin Ratio 0.8 L 07/05/21 08:10: PT 18.1 H, INR 1.59 H I & O for Last 24 hours: Intake & Output 07/02/21 07/03/21 07/04/21 07/05/21 11:59 11:59 11:59 11:59 Intake Total 120 / 120 3213 / 3213 Output Total 500 / 500 1600 / 1600 Balance -380 / -380 1613 / 1613 Weight 209 lb 10.554 oz 204 lb 9.423 oz Microbiology Reports for the Last 24 Hours: Microbiology 07/03/21 18:25 Urine,Catheterized Urine Culture - Preliminary NO GROWTH AFTER 24 HOURS Narrative: Patient appears pale but is alert, recognizes me. Mechanical valve sound, irregular heart rhythm but rate controlled. Blood pressures remain somewhat soft in the upper 90 range systolically. Abdomen is slightly tender but soft, extremities have good distal perfusion. No rash. Lawson catheter draining clear yellow urine. Neurologic exam globally symmetric with no deficits but overall very weak. ENT exam shows poor dental hygiene but well-hydrated. Assessment and Plan (1) Acute hypoxemic respiratory failure due to COVID-19 Status: Acute Category: Medical Code(s): U07.1 - COVID-19; J96.01 - Acute respiratory failure with hypoxia (2) Sepsis Status: Acute Category: Medical Code(s): A41.9 - Sepsis, unspecified organism (3) ANISH (acute kidney injury) Status: Acute Category: Medical Code(s): N17.9 - Acute kidney failure, unspecified (4) Dementia Status: Acute Category: Medical Code(s): F03.90 - Unspecified dementia without behavioral disturbance (5) Pancreatitis Status: Acute Qualifiers: Chronicity: acute Pancreatitis type: other Acute pancreatitis complication: unspecified Qualified Code(s): K85.80 - Other acute pancreatitis without necrosis or infection Category: Medical Code(s): K85.90 - Acute pancreatitis without necrosis or infection, unspecified (6) Pneumonia due to COVID-19 virus Status: Acute Category: Medical Code(s): U07.1 - COVID-19; J12.82 - Pneumonia due to coronavirus disease 2018 (7) Supratherapeutic INR Status: Acute Category: Medical Code(s): R79.1 - Abnormal coagulation profile (8) NSTEMI (non-ST elevated myocardial infa
--- NOTE | 2021-07-05 09:25 | HMH.OTEV ---
OT Inpatient Evaluation Rehab OT IP Evaluation Start: 07/05/21 08:36 Freq: ONCE Status: Complete Protocol: Document 07/05/21 09:13 [facility] (Rec: 07/05/21 09:25 [facility] [id number]) Rehab OT IP Assessment Subjective History Pt oriented x 2 on arrival. Pt agreeable to engage in therapy evaluation. Pt was admitted via ED on 07/03/21 due to PNA, A-fib, RVR, COVID-19. He tested positive for covid on 06/22/21, but is still testing positive at this time. Pt has a past medical history of Atrial Fibrillation , Congestive Heart Failure, Chronic Obstructive Pulmonary Disease (COPD), Coronary Artery Disease, Dementia, Diabetes Mellitus Type 2. Prior to hospital admission he was living with his , step-daughter, and several other family members. According to step-daughter, patient became too sick to care for at home and required ER evaluation. Pt reports prior to becoming ill he was independent with dressing and feeding. He explains he could usually bathe himself if he needed to. He was dependent upon family members for IADLs such as cleaning, laundry, cooking, etc. Pt does have a motorized wheelchair if he needs it , but normally he can walk without AE. Subjective I can do it, you all just need to move out of the way. Pt resting in bed on arrival. Pt required min assist x 1 to complete bed mobility and go from supine to sitting at eob. Pt demonstrated fair sitting balance as he sat at eob for ~3 minutes. However, the longer he sat he began leaning posteriorly requiring min assist to maintain upright
--- NOTE | 2021-07-05 10:19 | HMH.PTEV ---
Physical Therapy Evaluation Rehab PT IP Evaluation Start: 07/05/21 08:37 Freq: ONCE Status: Active Protocol: Document 07/05/21 09:50 [facility] (Rec: 07/05/21 10:19 [facility] [id number]) Subjective/History History History Pt is a 66 year old male admitted to [facility] for Covid. Pt states he lives with step- daughter in one level home. There are many steps to get into the home and the pt states he uses the handrails with occasional assistance from his step-daughter to get in. Pt reports not walking around as much as he used to. He occasionally uses a cane or walker when feeling weak. Eval completed by Stephanie Parra , [facility]. Subjective Subjective Pt reports feeling better this morning. He stated he would like to get out of bed and into bedside recliner with PT and OT. Rehab PT IP Eval Objective Appearance Patient Behavior Appropriate,Cooperative Patient Orientation Name,Birthday,Year Difficulty following instructions none Speech Pattern Clear,Appropriate,Coherent Ambulation Patient Able to Ambulate Yes Ambulation Observation IP General Gait Pattern Observation Wide Based Gait,Shuffling Step ,Trunk Posterior to [place] Ambulation Distance (feet) 5 Ambulation Assistive Device None Ambulation Ability Moderate x 2 (50% assist) Balance Ability to Arise Able, uses arms to help Sitting Balance Leans or slides in chair Standing Balance Unsteady Dynamic Sitting Balance Ability Fair Dynamic Standing Balance Ability Fair Transfers Bed Transfer Ability Minimal x 1 (25% assist) Chair Transfer Ability Moderate x 2 (50% assist) Sit to Stand Bed Transfer Ability Moderate x 2 (50% assist) ROM All Extremities PT ROM Status WFL MMT All Extremities PT MMT WFL Rehab PT IP prob,goals,plan Problems Date of Evaluation: 07/05/21 PT IP Problems Bed Mobility,Transfers,Gait, Balance,Safety Rehab Potential Rehab Potential Fair Equipment Needs Assistive Devices Rolling / Wheeled Walker Plan PT Intervention Plan Bed Mobility,Transfers,Gait,
--- NOTE | 2021-07-05 11:00 | SW/DCPLANNER ---
Addendum entered by Maren Gilliam 07/31/21 07:40: PATIENT WAS ACCEPTED TO [facility] AND JUST RECENTLY DISCHARGED HOME BECAUSE HE WAS OUT OF MCR DAYS..FAMILY TOOK PATIENT HOME AND HE HAS REQUIRED MORE CARE THAN THEY CAN PROVIDE.. WILL SPEAK WITH DAUGHTER TODAY TO SEE WHAT THE PLAN IS FOR HIM.. SINCE HE IS OUT OF DAYS, HE WILL EITHER HAVE TO DO PRIVATE PAY OR APPLY FOR MEDICAID...ONCE MD SEES PATIENT AND WE DETERMINE IF HE IS READY FOR A DISPOSITION I WILL SPEAK WITH FAMILY.. Original Note: ATTEMPTED TO COMMUNICATE WITH PATIENT VIA PHONE BUT HE DID NOT ANSWER... CALLED DAUGHTER REGARDING DISCHARGE PLANNING SINCE PATIENT IS POSITIVE FOR COVID AND SHE STATED HE NEEDS TO GO SOMEWHERE FOR REHAB, SHE REQUESTED HIM TO STAY LOCAL IF POSSIBLE AND SAID IF [facility] HAS A BED SHE WOULD PREFER THERE.. [facility] AND WAITING TO HEAR BACK..
[2021-07-05 11:30] LABS: POC Glucose,Bedside 120 (70-110)
--- NOTE | 2021-07-05 15:30 | PC.NURSE ---
Pt has been pleasant and cooperative this shift. Alert to person and place. No complaints of pain or SOA. Pt is currently on room air with sats. >90%. Lungs CTA. No edema noted. Skin is C/D/I. Pt ambulates with assistance X2 and sat up in the recliner for several hours today. Pt is incontinent and a brief is in place. Urine is clear and yellow. 1 large, brown, soft stool this shift. Appetite is good and pt eats the majority of all meals. Pt has been instructed to provide a sputum sample and a specimen cup is at bedside. 20 G peripheral IV in the LT wrist is patent and infusing LR @ 125 ML/HR. 20 G peripheral IV in the RT AC is patent and SL. VSS. Call light within reach. Will continue to monitor.
[2021-07-05 17:04] LABS: POC Glucose,Bedside 146 (70-110)
[2021-07-05 21:29] LABS: POC Glucose,Bedside 205 (70-110)
[2021-07-06] VITALS: BP 145/66; PULSE 77; PULSE 80; RESP 22; TEMP 36.6; O2SAT 97
--- NOTE | 2021-07-06 02:45 | PC.NURSE ---
No aucte changes this shift. Pt has remained on RA with sats in mid to upper 90s. No c/o soa. Pt has ambulated to BR with assist x1 one. Has voided per BR and brief. Pt has been incontinent of bowels. VSS. Medication administered per mar. Will continue to monitor.
[2021-07-06 04:00] VITALS: BP 140/78; PULSE 76; PULSE 80; RESP 20; TEMP 37.2; O2SAT 95
[2021-07-06 05:00] VITALS: BMI 28.5
[2021-07-06 06:23] LABS: Basophils # 0.2 K/mm3 (0-0.2); Basophils % 1.2 % (0.1-2.0); Hematocrit 39.9 % (42.0-52.0); Hemoglobin 12.4 g/dL (14.1-18.0); Lymphocytes # 1.1 K/mm3 (0.7-4.5); Lymphocytes % 8.4 % (10-50); Mean Corpuscular Hemoglobin 28.1 pg (27.0-31.2); Mean Corpuscular Volume 90.6 fl (80-94); Mean Platelet Volume 9.8 fl (7.4-10.4); Monocytes # 0.5 K/mm3 (0.1-1.0); Monocytes % 3.8 % (1.7-9.3); Neutrophils # 11.1 K/mm3 (1.8-7.8); Neutrophils % 86.5 % (37.0-80.0); Platelet Count 251 K/mm3 (142-424); Red Cell Distribution Width 18.8 % (11.5-17.5); White Blood Count 12.8 K/mm3 (4.8-10.8)
[2021-07-06 06:27] LABS: MANUAL DIFFERENTIAL MANUAL DIFFERENTIAL (MANUAL DIFF)
[2021-07-06 06:31] LABS: Prothrombin Time 14.8 seconds (10.1-12.5)
[2021-07-06 06:34] LABS: Alanine Aminotransferase 33 U/L (12-78); Albumin Level 3.3 g/dl (3.5-5.0); Albumin/Globulin Ratio 0.8 (1.1-1.8); Alkaline Phosphatase 74 U/L (38-126); Aspartate Amino Transferase 59 U/L (17-59); Bilirubin,Total 0.7 mg/dl (0.2-1.3); Blood Urea Nitrogen 37 mg/dl (9-20); Calcium 9.2 mg/dl (8.4-10.2); Carbon Dioxide 22 mmol/L (22.0-30.0); Chloride 108 mmol/L (98-107); Creatinine Clearance Estimated 93 mL/min (50-200); Estimated Glomerular Filt Rate 84 ml/min (>60); GFR (African American) 102 ML/MIN (>60); Globulin 4.1 g/dL (1.3-3.2); Glucose 123 mg/dl (74-100); Sodium 139 mmol/L (136-145); Total Protein,Serum 7.4 g/dl (6.3-8.2)
[2021-07-06 06:35] LABS: INR 1.28 (0.9-1.1)
[2021-07-06 07:16] LABS: Lymphocytes % 5 % (10-50); Monocytes % 7 % (2-9); Neutrophils % 88 % (42-76); Total Cells Counted 100
[2021-07-06 07:17] LABS: Anisocytosis 1+; Hypochromasia 1+; Macrocytosis 1+; Microcytosis 1+; Platelet Estimate Normal
[2021-07-06 08:00] VITALS: BP 105/61; PULSE 81; PULSE 88; RESP 20; TEMP 36.6; O2SAT 96
--- NOTE | 2021-07-06 08:50 | HMH.ACPN2 ---
Internal Medicine - PN: Subj *Date: 07/06/21 *Time: 08:50 Interval history: Patient did fairly well overnight. Is a little bit confused this morning and somewhat disoriented. Did pull out his IV. Otherwise has been redirectable. Pleasant. Vital signs have improved nicely. Exam Vital signs and Labs for Last 24 Hours: Temp Pulse Resp BP Pulse Ox 99 F 76 20 140/78 95 07/06/21 04:00 07/06/21 04:00 07/06/21 04:00 07/06/21 04:00 07/06/21 04:00 Laboratory Results - last 24 hr 07/05/21 11:19: POC Glucose 120 H 07/05/21 16:48: POC Glucose 146 H 07/05/21 20:47: POC Glucose 205 H 07/06/21 05:55: WBC 12.8 H, RBC 4.40 L, Hgb 12.4 L, Hct 39.9 L, MCV 90.6, MCH 28.1, MCHC 31.0 L, RDW 18.8 H, Plt Count 251 D, MPV 9.8, Neut % (Auto) 86.5 H, Lymph % (Auto) 8.4 L, [place] % (Auto) 3.8, Eos % (Auto) 0.0 L, Baso % (Auto) 1.2, Neut # (Auto) 11.1 H, Lymph # (Auto) 1.1, [place] # (Auto) 0.5, Eos # (Auto) 0.0, Baso # (Auto) 0.2, Total Counted 100, Neutrophils % (Manual) 88 H, Lymphocytes % (Manual) 5 L, Monocytes % (Manual) 7, Platelet Estimate Normal, Hypochromasia 1+, Anisocytosis 1+, Microcytosis 1+, Macrocytosis 1+ 07/06/21 05:55: Sodium 139, Potassium 4.0, Chloride 108 H, Carbon Dioxide 22, Anion Gap 13.0, BUN 37 H, Creatinine 0.90, Estimated Creat Clear 93, Estimated GFR 84, Est GFR ( Amer) 102 D, Glucose 123 H, Calcium 9.2, Total Bilirubin 0.7, AST 59, ALT 33, Alkaline Phosphatase 74, Total Protein 7.4, Albumin 3.3 L D, Globulin 4.1 H, Albumin/Globulin Ratio 0.8 L 07/06/21 05:55: PT 14.8 H, INR 1.28 H I & O for Last 24 hours: Intake & Output 07/03/21 07/04/21 07/05/21 07/06/21 11:59 11:59 11:59 11:59 Intake Total 120 / 120 3693 / 3693 3077 / 3077 Output Total 500 / 500 2200 / 2200 Balance -380 / -380 1493 / 1493 3077 / 3077 Weight 209 lb 10.554 oz 204 lb 9.423 oz 204 lb Microbiology Reports for the Last 24 Hours: Microbiology 07/03/21 18:25 Urine,Catheterized Urine Culture - Final NO GROWTH AFTER 48 HOURS Narrative: Patient is alert, pleasant. Somewhat disoriented. Lungs have good air movement, heart rate irregular but rate controlled, blood pressures are much improved. Abdomen soft. Patient's Lawson catheter is out, is urinating well. Moving extremities well. Assessment and Plan (1) Acute hypoxemic respiratory failure due to COVID-19 Status: Acute Category: Medical Code(s): U07.1 - COVID-19; J96.01 - Acute respiratory failure with hypoxia (2) Sepsis Status: Acute Category: Medical Code(s): A41.9 - Sepsis, unspecified organism (3) ANISH (acute kidney injury) Status: Acute Category: Medical Code(s): N17.9 - Acute kidney failure, unspecified (4) Dementia Status: Acute Category: Medical Code(s): F03.90 - Unspecified dementia without behavioral disturbance (5) Pancreatitis Status: Acute Qualifiers: Chronicity: acute Pancreatitis type: other Acute pancreatitis complication: unspecified Qualified Code(s): K85.80 - Other acute pancreatitis without necrosis or infection Category: Medical Code(s): K85.90 - Acute pancreatitis without necrosis or infection, unspecified (6) Pneumonia due to COVID-19 virus Status: Acute Category: Medical Code(s): U07.1 - COVID-19; J12.82 - Pneumonia due to coronavirus disease 2019 (7) Supratherapeutic INR Status: Acute Category: Medical Code(s): R79.1 - Abnormal coagulation profile (8) NSTEMI (non-ST elevated myocardial infarction) Status: Acute Category: Medical Code(s): I21.4 - Non-ST elevation (NSTEMI) myocardial infarction (9) Debility Status: Acute Category: Medical Code(s): R53.81 - Other malaise - Assessment and plan all Dx Assessment and Plan for all problems:: Overall patient is improving. Subtherapeutic INR, warfarin has been restarted, bridging with Lovenox. Patient's hemodynamic status is vastly improved. Patient would be able to go t
[2021-07-06 11:37] LABS: POC Glucose,Bedside 119 (70-110)
[2021-07-06 12:00] VITALS: BP 112/65; PULSE 86; RESP 18; TEMP 36.7; O2SAT 94
--- NOTE | 2021-07-06 13:57 | HMH.DCSUM ---
General - General Admission date:: 07/03/21 Discharge date: 07/06/21 HPI HPI: Mr. Lynne is a 66-year-old male with multiple comorbidities who was sent to the ER from home yesterday via EMS due to worsening diarrhea, debility, shortness of breath. Of note, he was initially diagnosed with COVID-19 on 06/22/21 along with several other family members. He presented to the ER with no family however in speaking to his stepdaughter, he has been dealing with cough, poor appetite, diarrhea and dehydration at home. Was falling out of his chair and became too much for her to care for at home. This led to her having EMS bring him to the ER for further assessment. For some time they have questioned the need for him to be placed in a [place] facility given his baseline debility and dependence on motorized wheelchair for movement. On arrival to the ER he was found to be in A. fib with RVR, initial labs concerning for pancreatitis, sepsis, Covid positive still. Treated with diltiazem drip and IV bolus. After labs returned, found to have elevated BNP so he was diuresed x1. Chest CT and CTA both obtained, findings revealed focal pneumonia concerning for superimposed bacterial pneumonia on Covid pneumonia. Admitted to medicine for further management. On assessment this morning, he is pleasant and oriented to self. States he wants everything done to keep him alive (full code). Denies nausea or vomiting. Denies abdominal pain or chest pain that is acute. Having diarrhea this morning on exam. Saturations in the mid 90s on 6 L nasal cannula oxygen. Heart rate in the 90s to low 100s on diltiazem drip. Per review of chart and discussion with family, patient previously on metoprolol for heart rate control. Has a mechanical valve, on warfarin with goal INR 2.5-3.5. Supratherapeutic on admission. Hospital Course Hospital Course: Patient was admitted to the hospital. He was found to be in rapid atrial fibrillation, Cardizem was given initially in IV form but this caused hypotension, this was discontinued, fluid boluses were given as patient was determined to be hemodynamically dry. This improved his blood pressure and after the discontinuation of Cardizem and the institution of metoprolol, tartrate, 25 mg twice daily his heart rate improved nicely. He was found to be over anticoagulated with INR of 7, warfarin was held, bridging Lovenox was also held until his INR normalized. INR went down to 1.5 yesterday and Lovenox and warfarin have been restarted. From an infectious disease standpoint, patient was treated with dexamethasone, remdesivir and monoclonal antibody therapy as noted for Covid protocols given current emergency use authorization standards. He was also treated with Zosyn given his high risk of sepsis. However blood cultures unfortunately were not drawn in the ER, urine cultures were negative. Patient's leukocytosis has improved. He was able to be progressed off his heart monitor and maintained off oxygen over the past 24 hours and lung status is nicely improved. Given his overall weakness, profound dementia and recent diarrhea his family has been unable to take care of him at home and they requested that we look for a long-term care facility. This afternoon he is stabilized and is on oral medication, he is tolerating feedings, Lawson catheter is out and he is on room air oxygen. He has reached maximal medical improvement in the hospital he can be transferred to long-term care facility. Please note he will need to be on Lovenox 90 mg subcu twice daily until INR is back to therapeutic range for his aortic valve. Please note he will need CBC, BMP and INR monitoring on the morning of July 08 and then again on the morning of July 10. Please note he will need PT/OT evaluation. Please note he will be on Levaquin 500 mg daily for the next 5 days to cover possible bacterial pathogens. He will also continue dexamethasone 4 mg twice daily for the n
[2021-07-07 00:56] LABS: POC Glucose,Bedside 158 (70-110)
== END 2021-07-06 16:00 | DRG 177 ==
LOC: ER 13:12 → 2ND 18:13
PROVIDERS: Internal Medicine Adolescent Medicine; Admitting Provider Family Medicine; Emergency Provider Family Medicine; Visit Provider Internal Medicine Adolescent Medicine
DX: U07.1 COVID-19 (principal); J12.82 Pneumonia due to coronavirus disease 2019; J96.01 Acute respiratory failure with hypoxia; I21.4 Non-ST elevation (NSTEMI) myocardial infarction; A41.9 Sepsis, unspecified organism; K85.90 Acute pancreatitis without necrosis or infection, unspecified; J44.0 Chronic obstructive pulmonary disease with (acute) lower respiratory infection; N17.9 Acute kidney failure, unspecified; R79.1 Abnormal coagulation profile; Z79.01 Long term (current) use of anticoagulants; E11.9 Type 2 diabetes mellitus without complications; I50.9 Heart failure, unspecified; I11.0 Hypertensive heart disease with heart failure; Z79.4 Long term (current) use of insulin; I48.91 Unspecified atrial fibrillation; I25.10 Atherosclerotic heart disease of native coronary artery without angina pectoris; F03.90 Unspecified dementia, unspecified severity, without behavioral disturbance, psychotic disturbance, mood disturbance, and anxiety; Z87.891 Personal history of nicotine dependence; Z79.02 Long term (current) use of antithrombotics/antiplatelets; Z95.2 Presence of prosthetic heart valve
CPT/HCPCS: 36415; 71045; 71275; 74177; 80053; 82728; 82962; 83690; 83735; 83880; 84484; 85007; 85025; 85610; 86140; 87086; 93005; 94640; 96365; 96366; 97110; 97162; 97166; 97530; 99285; C9803; J2543; Q9967; U0003; U0005

== ENCOUNTER 2021-07-08 12:20 | Emergency (ER) | payer MEDICARE, SELFPAY ==
[2021-07-08] VITALS (10 sets, daily range): BP systolic 138–157; BP diastolic 85–112; PULSE 61–126; RESP 14–24; TEMP 36.4–37.2; O2SAT 96–98; BMI 24.8; BMI 25.4
--- NOTE | 2021-07-08 12:17 | ECG_ITS ---
APPROVED REPORT Exam: Resting ECG HR:127 bpm ECG Measurements Heart Rate 127 AXES QRSd 98 QRS -14 QT 344 T 82 QTc 499 Conclusion Atrial fibrillation with rapid ventricular response with premature ventricular or aberrantly conducted complexes Abnormal ECG Electronically signed by : Mynor Hoffman MD 07/09/2021 20:53:50
--- NOTE | 2021-07-08 12:21 | HMH.EDGENADL ---
ED Disposition Clinical Impression: Atrial fibrillation with rapid ventricular response, Somnolence Disposition: Home, Self-Care Condition on Discharge: Fair Prescriptions: Metoprolol Tartrate [Lopressor 25mg tablet] 25 mg PO BID #60 tab Prescription Printed Referrals: Provider,Referral, [Primary Care Provider] - - Critical Care Critical Care Time: No Attestation: On , the high probability of a clinically significant, sudden or life threatening deterioration of the following system(s) required my full and direct attention, intervention and personal management. The time I documented below is in addition to time spent performing reported procedures but includes the following listed in this critical care notation. Medical Decision Making - Medical Records Medical records reviewed: Yes: I reviewed the patient's medical records. MR Comment: Reviewed discharge summary from recent admission 07/03/2021 through 07/06/2021. He had atrial fibrillation with rapid ventricular response, respiratory failure with pneumonia, covid 19 (initially diagnosed 06/22/21), pancreatitis, supratherapeutic INR from Coumadin. He was discharged on Levaquin, dexamethasone, Lovenox, risperidone, but not on metoprolol. Coumadin held pending trending of PT/INR. Noted that he became hypotensive on Cardizem drip and was switched to metoprolol. - Roman Inquiry Pt receiving controlled substance: No Vital Signs: 07/08/21 12:20 07/08/21 13:00 07/08/21 13:16 Temperature 97.5 F L Temperature Source Oral Pulse Rate 126 H 92 H Pulse Rate [Right] 114 H Respiratory Rate 20 24 18 Blood Pressure 151/112 H 151/100 H Blood Pressure [Right Arm] 156/110 H Blood Pressure Mean 128 117 Blood Pressure Mean [Right Arm] 125 Blood Pressure Source [Right Arm] Automatic Cuff Blood Pressure Position [Right Arm] Supine 02 Sat by Pulse Oximetry 96 98 97 07/08/21 13:30 07/08/21 14:00 07/08/21 15:00 Temperature Temperature Source Pulse Rate 101 H 108 H 108 H Pulse Rate [Right] Respiratory Rate 16 20 20 Blood Pressure 150/93 H 149/107 H 149/107 H Blood Pressure [Right Arm] Blood Pressure Mean 114 118 Blood Pressure Mean [Right Arm] Blood Pressure Source [Right Arm] Blood Pressure Position [Right Arm] 02 Sat by Pulse Oximetry 96 98 97 07/08/21 16:00 07/08/21 16:31 07/08/21 17:30 Temperature Temperature Source Pulse Rate 113 H 61 112 H Pulse Rate [Right] Respiratory Rate 18 17 14 Blood Pressure 138/89 157/101 H 150/99 H Blood Pressure [Right Arm] Blood Pressure Mean 104 119 122 Blood Pressure Mean [Right Arm] Blood Pressure Source [Right Arm] Blood Pressure Position [Right Arm] 02 Sat by Pulse Oximetry 98 97 96 - Lab Data Lab Results 07/08/21 13:39: WBC 12.8 H, RBC 4.53 L, Hgb 12.9 L, Hct 40.8 L, MCV 90.2, MCH 28.5, MCHC 31.6 L, RDW 19.0 H, Plt Count 336 D, MPV 9.6, Neut % (Auto) 87.8 H, Lymph % (Auto) 5.2 L, [place] % (Auto) 6.3, Eos % (Auto) 0.1, Baso % (Auto) 0.7, Neut # (Auto) 11.2 H, Lymph # (Auto) 0.7, [place] # (Auto) 0.8, Eos # (Auto) 0.0, Baso # (Auto) 0.1, Total Counted 100, Neutrophils % (Manual) 87 H, Lymphocytes % (Manual) 7 L, Monocytes % (Manual) 6, Platelet Estimate Normal, RBC Morphology Normal 07/08/21 13:39: Sodium 144, Potassium 3.8, Chloride 107, Carbon Dioxide 28, Anion Gap 12.8, BUN 20 D, Creatinine 0.90, Estimated Creat Clear 93, Estimated GFR 84, Est GFR ( Amer) 102, Glucose 202 H, Calcium 9.2, Total Bilirubin 0.6, AST 39 D, ALT 31, Alkaline Phosphatase 94, Total Protein 7.9, Albumin 3.4 L, Globulin 4.5 H, Albumin/Globulin Ratio 0.8 L 07/08/21 13:39: Lactate 1.6 07/08/21 13:39: PT 34.5 H, INR 3.19 H 07/08/21 13:39: Lipase 102 07/08/21 14:58: Urine Color Yellow, Urine Appearance Sl cloudy, Urine pH 7.5, Ur Specific [place] 1.020, Urine Protein Negative, Urine Glucose (UA) Negative, Urine Ketones Negative, Urine Blood 3+, Urine Nitrate Negative, Urine Bilirubin Negative,
--- NOTE | 2021-07-08 12:38 | XR_ITS ---
PROCEDURE INFORMATION: Exam: XR Chest Exam date and time: 07/08/2021 12:38 PM Age: 66 years old Clinical indication: Shortness of breath; Additional info: Pneumonia TECHNIQUE: Imaging protocol: XR of the chest. Views: 1 view. COMPARISON: CR XR CHEST PORTABLE 07/03/2021 12:53 PM FINDINGS: Lungs: Emphysematous change, interstitial prominence, and bilateral airspace disease. Pleural spaces: No pleural effusion. Heart/Mediastinum: Valve replacement and cardiomegaly. Vasculature: Aortic and vascular calcification. Bones/joints: Degenerative change. IMPRESSION: Emphysematous change, interstitial prominence, and bilateral airspace disease.
--- NOTE | 2021-07-08 12:38 | CT_ITS ---
PROCEDURE INFORMATION: Exam: CT Abdomen And Pelvis With Contrast Exam date and time: 07/08/2021 12:38 PM Age: 66 years old Clinical indication: Abdominal pain; Tenderness; Other: PT didnt say; Additional info: Abdominal tenderness, recent pancreatitis TECHNIQUE: Imaging protocol: Computed tomography of the abdomen and pelvis with contrast. Radiation optimization: All CT scans at this facility use at least one of these dose optimization techniques: automated exposure control; mA and/or kV adjustment per patient size (includes targeted exams where dose is matched to clinical indication); or iterative reconstruction. Contrast material: ISOVUE; Contrast volume: 75 ml; Contrast route: IV; COMPARISON: CT ABDOMEN PELVIS W CON 07/03/2021 4:06 PM FINDINGS: Inferior thorax: Prominent dependent bilateral lower lobe airspace disease, in a pattern worrisome for aspiration. Interstitial prominence. Aortic valve replacement. Coronary artery calcification and borderline cardiomegaly. Liver: Lobulated morphology of the liver and calcified granuloma. Gallbladder and bile ducts: Status post cholecystectomy. Pancreas: No pancreatic mass or ductal dilatation. Mild residual infiltration of fat posterior to the pancreatic tail. Spleen: No splenomegaly. Accessory spleens. Adrenal glands: Stable adrenal morphology. Kidneys and ureters: Questionable nonobstructing renal calculi, which are poorly visualized in the presence of pelvicaliceal contrast. Additional subcentimeter renal hypodensities which are too small to accurately characterize. Stomach and bowel: Questionable wall thickening in the nondistended distal esophagus and stomach. Scattered diverticula, without pericolonic inflammation. Appendix: Nonvisualization of the appendix. Intraperitoneal space: No dependent free fluid in the pelvis. Vasculature: Prominent vascular calcification and ectasia of the abdominal aorta. Arteries: Aortic valve replacement. Coronary artery calcification and borderline cardiomegaly. Lymph nodes: Subcentimeter lymph nodes. Urinary bladder: Minimal bladder wall thickening. Reproductive: Prostate calcification. Bones/joints: Osteopenia. Degenerative change and disc bulging. Soft tissues: Bilateral subcutaneous emphysema in the anterior abdominal wall, along with mild infiltration of subcutaneous fat. Incompletely visualized 7.0 x 4.7 by 4.9 cm high attenuation ovoid collection in the subcutaneous soft tissues about the lateral aspect of the proximal left femoral diaphysis, which was also present on the previous study. Calcification at the gluteal muscle attachment sites. IMPRESSION: 1. Prominent dependent bilateral lower lobe airspace disease, in a pattern worrisome for aspiration. 2. Mild residual infiltration of fat posterior to the pancreatic tail. 3. Additional findings as described above. COMMENTS: Consistent with the [employer]'s Incidental Findings Committee white paper (J Am Rosanna Radiol 2018): Any incidental renal lesion less than 1 cm or classified as too small to characterize, or any incidental cystic renal lesion characterized as simple-appearing, is likely benign. No follow-up imaging is recommended for these lesions per consensus recommendations based on imaging criteria.
--- NOTE | 2021-07-08 12:38 | CT_ITS ---
PROCEDURE INFORMATION: Exam: CT Head Without Contrast Exam date and time: 07/08/2021 12:38 PM Age: 66 years old Clinical indication: Altered mental status/memory loss; Additional info: AMS, on coumadin TECHNIQUE: Imaging protocol: Computed tomography of the head without contrast. 3D rendering (Not supervised by radiologist): MIP and/or 3D reconstructed images were created by the technologist. Radiation optimization: All CT scans at this facility use at least one of these dose optimization techniques: automated exposure control; mA and/or kV adjustment per patient size (includes targeted exams where dose is matched to clinical indication); or iterative reconstruction. COMPARISON: No relevant prior studies available. FINDINGS: Brain: Prominent sulci. Patchy hypodensity of the cerebral white matter which are nonspecific but likely secondary to microangiopathic changes. Cerebral ventricles: The ventricles are prominent secondary to diffuse volume loss/atrophy. Paranasal sinuses: Partial opacification of the left maxillary sinus and mild mucoperiosteal thickening remainder of paranasal sinuses. Mastoid air cells: Visualized mastoid air cells are well aerated. Bones/joints: Unremarkable. No acute fracture. Soft tissues: Unremarkable. IMPRESSION: 1. Chronic age related changes but no evidence of acute intracranial pathology. 2. Partial opacification of the left maxillary sinus and mild mucoperiosteal thickening remainder of paranasal sinuses.
--- NOTE | 2021-07-08 13:20 | PC.NURSE ---
Pt c/o dry mouth. Oral care provided by this nurse. Pt states that mouth feels much better.
--- NOTE | 2021-07-08 13:36 | HMH.ITSTN ---
ER was called and no IV or labs on patient at 12:50pm ... advised need a 20G if possible for contrast. Called back at 1:37PM still trying to get an IV and labs having a hard time with IV. They are suppose to callback once they get a line.
[2021-07-08 13:49] LABS: Basophils # 0.1 K/mm3 (0-0.2); Basophils % 0.7 % (0.1-2.0); Eosinophils % 0.1 % (0.1-12.0); Hematocrit 40.8 % (42.0-52.0); Hemoglobin 12.9 g/dL (14.1-18.0); Lymphocytes # 0.7 K/mm3 (0.7-4.5); Lymphocytes % 5.2 % (10-50); Mean Corpuscular HGB Conc 31.6 g/dL (31.8-35.4); Mean Corpuscular Hemoglobin 28.5 pg (27.0-31.2); Mean Corpuscular Volume 90.2 fl (80-94); Mean Platelet Volume 9.6 fl (7.4-10.4); Monocytes # 0.8 K/mm3 (0.1-1.0); Monocytes % 6.3 % (1.7-9.3); Neutrophils # 11.2 K/mm3 (1.8-7.8); Neutrophils % 87.8 % (37.0-80.0); Platelet Count 336 K/mm3 (142-424); Red Blood Count 4.53 M/mm3 (4.60-6.20); White Blood Count 12.8 K/mm3 (4.8-10.8)
[2021-07-08 13:53] LABS: Chloride 107 mmol/L (98-107); MANUAL DIFFERENTIAL MANUAL DIFFERENTIAL (MANUAL DIFF); Potassium 3.8 mmoL/L (3.5-5.1); Sodium 144 mmol/L (136-145)
[2021-07-08 13:56] LABS: Alanine Aminotransferase 31 U/L (12-78); Albumin Level 3.4 g/dl (3.5-5.0); Albumin/Globulin Ratio 0.8 (1.1-1.8); Alkaline Phosphatase 94 U/L (38-126); Anion Gap 12.8 mEq/L (5-15); Aspartate Amino Transferase 39 U/L (17-59); Bilirubin,Total 0.6 mg/dl (0.2-1.3); Blood Urea Nitrogen 20 mg/dl (9-20); Carbon Dioxide 28 mmol/L (22.0-30.0); Creatinine Clearance Estimated 93 mL/min (50-200); Estimated Glomerular Filt Rate 84 ml/min (>60); GFR (African American) 102 ML/MIN (>60); Globulin 4.5 g/dL (1.3-3.2); Lipase 102 U/L (23-300); Total Protein,Serum 7.9 g/dl (6.3-8.2)
[2021-07-08 13:57] LABS: Calcium 9.2 mg/dl (8.4-10.2); Glucose 202 mg/dl (74-100); Lactic Acid 1.6 mmol/L (0.7-2.1)
[2021-07-08 14:02] LABS: INR 3.19 (0.9-1.1); Prothrombin Time 34.5 seconds (10.1-12.5)
[2021-07-08 14:05] LABS: Lymphocytes % 7 % (10-50); Monocytes % 6 % (2-9); Neutrophils % 87 % (42-76); Total Cells Counted 100
[2021-07-08 14:06] LABS: Platelet Estimate Normal; RBC Morphology Normal
[2021-07-08 15:04] LABS: Microscopic, Urine URINE MICROSCOPIC (MICROSCOPIC)
[2021-07-08 15:07] LABS: Appearance,Urine SL CLOUDY (Clear); Bilirubin,Urine Negative (Negative); Blood, Urine 3+ (Negative); Color,Urine YELLOW (Yellow); Glucose,Urine (UA) Negative (Negative); Ketones,Urine Negative (Negative); Leukocyte Esterase,Urine Negative (Negative); Nitrate,Urine Negative (Negative); PH,Urine 7.5 (5.0-8.5); Protein,Urine Negative (Negative); Urobilinogen,Urine 0.2 EU/dl (0.2)
[2021-07-08 15:17] LABS: Bacteria,Urine Trace /lpf; RBC,Urine 50-100 #/hpf (0-3); Squamous Epithelial Cell,Urine Occasional #/hpf (0-5); WBC,Urine Occasional #/hpf (0-3)
--- NOTE | 2021-07-08 18:13 | PC.NURSE ---
Dr Soares spoke with dr Meadows, pt to go back to [place]
== END 2021-07-08 19:13 | disposition home or self-care (01) ==
PROVIDERS: Emergency Provider Emergency Medicine
DX: I48.0 Paroxysmal atrial fibrillation (principal); R40.0 Somnolence; F03.90 Unspecified dementia, unspecified severity, without behavioral disturbance, psychotic disturbance, mood disturbance, and anxiety; J44.9 Chronic obstructive pulmonary disease, unspecified; I25.10 Atherosclerotic heart disease of native coronary artery without angina pectoris; Z79.899 Other long term (current) drug therapy
CPT/HCPCS: 70450; 71045; 74177; 80053; 81001; 83605; 83690; 85007; 85025; 85610; 87040; 93005; 99284; Q9967

== ENCOUNTER 2021-07-29 15:44 | Observation (INO) | payer MEDICARE, SELFPAY ==
[2021-07-29] VITALS (8 sets, daily range): BP systolic 94–121; BP diastolic 51–79; PULSE 105–126; RESP 16–21; TEMP 36.7–36.8; O2SAT 90–97; BMI 20.5; BMI 22.6
--- NOTE | 2021-07-29 15:50 | ECG_ITS ---
APPROVED REPORT Exam: Resting ECG HR:138 bpm ECG Measurements Heart Rate 138 AXES QRSd 88 QRS -1 QT 318 T 164 QTc 481 Conclusion Atrial fibrillation with rapid ventricular response ST & T wave abnormality, consider lateral ischemia or digitalis effect Abnormal ECG Electronically signed by : Mynor Hoffman MD 07/31/2021 18:00:00
--- NOTE | 2021-07-29 15:54 | HMH.EDGENADL ---
ED Disposition Clinical Impression: Rapid atrial fibrillation Disposition: Admitted as Observation Condition on Discharge: Fair Referrals: Provider,Referral, [Primary Care Provider] - - Critical Care Critical Care Time: No Attestation: On 07/29/21, the high probability of a clinically significant, sudden or life threatening deterioration of the following system(s) required my full and direct attention, intervention and personal management. The time I documented below is in addition to time spent performing reported procedures but includes the following listed in this critical care notation. Medical Decision Making - Medical Records Medical records reviewed: Yes: I reviewed the patient's medical records. MR Comment: Reviewed discharge summary from admission 07/03/2021 through 07/06/2021 for Covid pneumonia, rapid atrial fibrillation, pancreatitis. Discharged to [facility] for rehabilitation. Reviewed emergency department note from 07/08/2021, seen by me for rapid atrial fibrillation. Treated with intravenous metoprolol. Discharged back to [facility]. - Roman Inquiry Pt receiving controlled substance: No Vital Signs: 07/29/21 15:53 07/29/21 16:42 Temperature 98.2 F Temperature Source Oral Pulse Rate 113 H Pulse Rate [Right Radial] 116 H Respiratory Rate 21 20 Blood Pressure 117/70 Blood Pressure [Right Arm] 118/79 Blood Pressure Mean [Right Arm] 92 Blood Pressure Source [Right Arm] Automatic Cuff Blood Pressure Position [Right Arm] Supine 02 Sat by Pulse Oximetry 90 L 96 Oxygen Delivery Method Room Air - Lab Data Lab Results 07/29/21 16:00: WBC 10.4, RBC 4.11 L, Hgb 12.0 L, Hct 37.1 L, MCV 90.3, MCH 29.1, MCHC 32.2, RDW 17.4, Plt Count 221, MPV 8.4, Neut % (Auto) 82.1 H, Lymph % (Auto) 8.7 L, [place] % (Auto) 5.4, Eos % (Auto) 3.3, Baso % (Auto) 0.6, Neut # (Auto) 8.6 H, Lymph # (Auto) 0.9, [place] # (Auto) 0.6, Eos # (Auto) 0.3, Baso # (Auto) 0.1 07/29/21 16:00: Sodium 135 L, Potassium 4.0, Chloride 98, Carbon Dioxide 28, Anion Gap 13.0, BUN 24 H, Creatinine 1.00, Estimated Creat Clear 73, Estimated GFR 74, Est GFR ( Amer) 90, Glucose 153 H, Calcium 9.5, Total Bilirubin 0.7, AST 116 H, ALT 84 H, Alkaline Phosphatase 150 H, Troponin I < 0.01, Total Protein 8.4 H, Albumin 3.5, Globulin 4.9 H, Albumin/Globulin Ratio 0.7 L 07/29/21 16:00: PT 23.1 H, INR 2.16 H 07/29/21 16:00: Lipase 57 07/29/21 16:55: SARS-CoV-2 (PCR) Not detected, Influenza A Untype (PCR) Not detected, Influenza Type B (PCR) Not detected Result diagrams: 07/29/21 16:00 07/29/21 16:00 Orders (Tests/Meds): ED MEDICATIONS Generic Name Dose Route Start Last Admin Trade Name Freq PRN Reason Stop Dose Admin Diltiazem HCl 100 mg/ Sodium 100 mls @ 10 mls/hr 07/29/21 16:15 07/29/21 16:45 Chloride IV 08/28/21 16:14 10 mls/hr .Q10H NICKIE Administration Protocol Discontinued Medications Generic Name Dose Route Start Last Admin Trade Name Freq PRN Reason Stop Dose Admin Diltiazem HCl 20 mg 07/29/21 16:05 07/29/21 16:05 Diltiazem 25mg/5ml Vial IV 07/29/21 16:06 20 mg ONCE ONE Administration ORDERS Category Date Time Status Chest XR -- portable [XR chest portable] Stat Exams 07/29/21 16:05 Taken Troponin I Q3H Lab 07/29/21 19:15 Ordered Troponin I Q3H Lab 07/29/21 22:15 Ordered - Radiology Data #1 Image(s): Chest Image Reviewed: Yes I reviewed the patient's radiology image Improved airspace disease since 07/08/2021. - ECG Data Tracing #1 EKG interpreted by Nathen Gray MD: Rhythm: Atrial fibrillation with rapid ventricular response Rate: 138 Dennis: normal Ectopy: none Conduction: normal ST Segment Changes: Nonspecific T Wave Changes: Nonspecific Q Waves: none Baseline artifact present - Physician Consults Physician Consulted: Abdiel Time: 17:25 Reason -: Admission Comment/Response: Agrees to admit the patient to the hospit
--- NOTE | 2021-07-29 16:05 | XR_ITS ---
PROCEDURE INFORMATION: Exam: XR Chest Exam date and time: 07/29/2021 4:05 PM Age: 66 years old Clinical indication: Pain; Chest pressure; Additional info: Afib, tachycardia TECHNIQUE: Imaging protocol: XR of the chest. Views: 1 view. COMPARISON: CR XR CHEST PORTABLE 07/08/2021 2:34 PM FINDINGS: Tubes, catheters and devices: There are sternal wires consistent with previous sternotomy incision. Lungs: Bilateral hyperinflation is present. Atelectatic changes noted within both lung bases. Pleural spaces: Unremarkable. No pleural effusion. No pneumothorax. Heart/Mediastinum: Unremarkable. No cardiomegaly. Vasculature: The vasculature demonstrates diffuse mild atherosclerotic calcification. Bones/joints: The thoracic spine demonstrates mild degenerative changes at multiple levels. IMPRESSION: 1. Bilateral hyperinflation is present. 2. Atelectatic changes noted within both lung bases.
--- NOTE | 2021-07-29 16:08 | PC.NURSE ---
called radiology and spoke with anjali about stat chest xray
[2021-07-29 16:13] LABS: Basophils # 0.1 K/mm3 (0-0.2); Basophils % 0.6 % (0.1-2.0); Eosinophils # 0.3 K/mm3 (0.0-0.4); Eosinophils % 3.3 % (0.1-12.0); Hematocrit 37.1 % (42.0-52.0); Lymphocytes # 0.9 K/mm3 (0.7-4.5); Lymphocytes % 8.7 % (10-50); Mean Corpuscular HGB Conc 32.2 g/dL (31.8-35.4); Mean Corpuscular Hemoglobin 29.1 pg (27.0-31.2); Mean Corpuscular Volume 90.3 fl (80-94); Mean Platelet Volume 8.4 fl (7.4-10.4); Monocytes # 0.6 K/mm3 (0.1-1.0); Monocytes % 5.4 % (1.7-9.3); Neutrophils # 8.6 K/mm3 (1.8-7.8); Neutrophils % 82.1 % (37.0-80.0); Platelet Count 221 K/mm3 (142-424); Red Blood Count 4.11 M/mm3 (4.60-6.20); Red Cell Distribution Width 17.4 % (11.5-17.5); White Blood Count 10.4 K/mm3 (4.8-10.8)
[2021-07-29 16:21] LABS: Chloride 98 mmol/L (98-107); Sodium 135 mmol/L (136-145)
[2021-07-29 16:23] LABS: Blood Urea Nitrogen 24 mg/dl (9-20)
[2021-07-29 16:24] LABS: Alanine Aminotransferase 84 U/L (12-78); Albumin Level 3.5 g/dl (3.5-5.0); Albumin/Globulin Ratio 0.7 (1.1-1.8); Alkaline Phosphatase 150 U/L (38-126); Aspartate Amino Transferase 116 U/L (17-59); Bilirubin,Total 0.7 mg/dl (0.2-1.3); Calcium 9.5 mg/dl (8.4-10.2); Carbon Dioxide 28 mmol/L (22.0-30.0); Creatinine Clearance Estimated 73 mL/min (50-200); Estimated Glomerular Filt Rate 74 ml/min (>60); GFR (African American) 90 ML/MIN (>60); Globulin 4.9 g/dL (1.3-3.2); Glucose 153 mg/dl (74-100); Total Protein,Serum 8.4 g/dl (6.3-8.2)
[2021-07-29 16:27] LABS: INR 2.16 (0.9-1.1); Prothrombin Time 23.1 seconds (10.1-12.5)
[2021-07-29 16:32] LABS: Lipase 57 U/L (23-300)
[2021-07-29 16:36] LABS: Troponin I < 0.01 ng/ml (0.00-0.034)
--- NOTE | 2021-07-29 16:47 | PC.NURSE ---
Pt heart rate in the low 100's still in a-fib. MD advises to start drip at 5mg at this time. will continue to monitor and titrate as necessary.
[2021-07-29 16:59] LABS: Coronavirus 19, PCR Not Detected (NotDetected); Influenza A, PCR Not Detected (NotDetected); Influenza B, PCR Not Detected (NotDetected)
--- NOTE | 2021-07-29 17:07 | PC.NURSE ---
dr Abdiel mcdermott
--- NOTE | 2021-07-29 17:08 | PC.NURSE ---
Spoke with pts daughter jonel. She stated that she was okay if we decide to admit him here. She also stated that hospice is going to step in once he gets out. She also stated that he cannot eat solid food. He is on a puree diet.
--- NOTE | 2021-07-29 17:16 | PC.NURSE ---
Spoke with ER MD pts blood pressure is 94/64 so we stopped drip.
--- NOTE | 2021-07-29 18:28 | PC.NURSE ---
Called report into [facility].
--- NOTE | 2021-07-29 18:41 | PC.NURSE ---
pt arrived to the floor at this time
--- NOTE | 2021-07-29 19:18 | PC.NURSE ---
Patient arrived from ER to bed 203 at 1850. Patient is on tele and in a-fib. Patient is on room air. Patient is a total assist and total feed. Patient is incontinent of bowel and bladder, brief on. Patient is a poor historian, alert to self only. [facility] has been notified, but is at the time unavailable with a family emergency. Admission assessment completed as much as possible at current time.
[2021-07-30] VITALS (7 sets, daily range): BP systolic 103–121; BP diastolic 52–77; PULSE 76–110; RESP 17–18; TEMP 36.7–36.8; O2SAT 92–95; BMI 22.6
[2021-07-30 05:57] LABS: POC Glucose,Bedside 111 (70-110)
--- NOTE | 2021-07-30 06:07 | PC.NURSE ---
Patient is alert to self. He has been pleasant this shift. He has appeared to have rested well throughout the night. He has voiced no complaints to this RN. He has remained in Afib on telemetry. Patient lung sounds are diminished throughout. VSS, call light within reach, will continue to monitor.
--- NOTE | 2021-07-30 07:30 | PC.NURSE ---
Ivett notified by RN of critical lab values as follows: Potassium- 2.4 Glucose- 471 Patient is having large quantities of urine output with 1500mL out since admission to floor. Patient has maintained urinary output of around 400-500mL/HR this morning. Provider notified. RN asked for urine osmolarity. Patient is increasingly combative, requested q4 ATIVAN be ammended to q2. Provider wishes to hold off at this time. No further orders at this time. Provider will continue to monitor
--- NOTE | 2021-07-30 08:11 | HMH.HP ---
*Admission Date: 07/29/21 *Chief complaint: fast heart rate, weak, failure to thrive. *History of present illness: Mr. Lynne is a 66-year-old man with mechanical heart valve, dementia, progressive debility, and recent Covid pneumonia 3 to 4 weeks ago. Had previously been admitted to [facility] and discharged to [facility] for rehab. Patient was discharged from [facility] on Saturday due to being out of Medicare/rehab days. Patient's family elected to have him come home. Unfortunately after getting home he is required extensive care and assistance beyond their capabilities. Home health nurse arrived on Saturday to assess him when it was noted his INR was subtherapeutic at 2.4 (goal 2.5-3.5 given mechanical valve). Additional concern for shortness of breath and A. fib with RVR. On assessment in the ER, patient was found to be tachycardic and in atrial fibrillation. Labs obtained showing subtherapeutic INR, otherwise labs at baseline for patient. Confusion and debility somewhat worse than last hospitalization. No significant oxygen requirement. Given inability of family to care for patient at home, has extensive nursing/care needs, and uncontrolled tachyarrhythmia, decision made to admit patient for further management. On assessment this morning he is pleasant but confused. Cannot tell me where he is. Oriented to person only. Denies any pain, shortness of breath, nausea. Was to be self aware of some of his confusion as he is very tearful when told it is okay after given several minutes to respond to questions and unable to answer where he is or what month it is. Of note he did finally answer that he is in [place], [place] (former place of residence) [facility] History I have reviewed the patient's past medical history: Yes Medical History: Reports:: Arrhythmia, Atrial Fibrillation, Congestive Heart Failure, Chronic Obstructive Pulmonary Disease (COPD), Coronary Artery Disease, Dementia, Diabetes Mellitus Type 2, Hypertension Denies:: Cancer, Diabetes Mellitus Type 1, Home Oxygen, MRSA *Have you ever received a pneumonia vaccine?: No *Have you received a flu vaccine this season?: No Other Surgeries: Yes: No Previous Surgery Amputation: No Fractures: No - *Social History Smoking Status: Never smoker # Packs/Day (cigarettes): 1 Alcohol Intake: never *Occupational Status:: retired *Travel in the last 8 weeks: None Family Hx:: Unable to obtain Review of Systems - Review of Systems Review of systems:: pertinent systems reviewed and negative unless documented below (Of systems) - Eyes Reports itchy eyes (14 point review of systems performed, pertinent positives and neg. per HPI.) - *Neurologic Denies headache(s), Denies numbness, Denies weakness Meds Home Medications Medication Instructions Recorded Confirmed Type buPROPion HCL [Wellbutrin XL] 300 mg PO DAILY 04/17/21 07/29/21 History Atorvastatin Calcium [Lipitor 40mg 40 mg PO HS 07/03/21 07/29/21 History Tab] Sitagliptin Phosphate [Januvia 100 mg PO DAILY 07/03/21 07/29/21 History 100mg tablet] Famotidine [Pepcid 20mg Tablet] 20 mg PO BID 07/29/21 07/29/21 History Metoprolol Tartrate [Lopressor 25 mg PO BID 07/29/21 07/29/21 History 25mg tablet] Warfarin Sodium [Coumadin 5mg 5 mg PO DAILY 07/29/21 07/29/21 History tablet] risperiDONE [Risperdal 0.25mg 0.25 mg PO TID 07/29/21 07/29/21 History Tablet] Fluticasone/Umeclidin/Vilanter 1 puff IH DAILY 07/30/21 07/30/21 History [Trelegy Ellipta 100-62.5-25] Allergies Allergy/AdvReac Type Severity Reaction Status Date / Time No Known Allergies Allergy Verified 07/04/21 06:02 Exam Vital signs and Labs for Last 24 Hours: Temp Pulse Resp BP Pulse Ox 98.2 F 104 H 17 109/68 L 92 L 07/30/21 04:09 07/30/21 04:09 07/30/21 04:09 07/30/21 04:09 07/30/21 04:09 Laboratory Results - last 24 hr 07/29/21 16:00: WBC 10.4, RBC 4.11 L, Hgb 12.0 L, Hct 37.1 L, MCV 9
[2021-07-30 08:20] LABS: Basophils % 0.5 % (0.1-2.0); Eosinophils # 0.3 K/mm3 (0.0-0.4); Eosinophils % 3.5 % (0.1-12.0); Hematocrit 36.3 % (42.0-52.0); Hemoglobin 11.6 g/dL (14.1-18.0); Lymphocytes # 0.7 K/mm3 (0.7-4.5); Lymphocytes % 9.1 % (10-50); Mean Corpuscular Hemoglobin 29.3 pg (27.0-31.2); Mean Corpuscular Volume 91.5 fl (80-94); Mean Platelet Volume 8.1 fl (7.4-10.4); Monocytes # 0.5 K/mm3 (0.1-1.0); Neutrophils # 6.2 K/mm3 (1.8-7.8); Platelet Count 194 K/mm3 (142-424); Red Blood Count 3.97 M/mm3 (4.60-6.20); Red Cell Distribution Width 17.3 % (11.5-17.5); White Blood Count 7.7 K/mm3 (4.8-10.8)
[2021-07-30 08:25] LABS: Chloride 101 mmol/L (98-107); Potassium 3.9 mmoL/L (3.5-5.1); Sodium 136 mmol/L (136-145)
[2021-07-30 08:27] LABS: Alanine Aminotransferase 79 U/L (12-78); Aspartate Amino Transferase 100 U/L (17-59); Blood Urea Nitrogen 18 mg/dl (9-20); Creatinine Clearance Estimated 80 mL/min (50-200); Estimated Glomerular Filt Rate 96 ml/min (>60); GFR (African American) 116 ML/MIN (>60)
[2021-07-30 08:28] LABS: Albumin Level 3.2 g/dl (3.5-5.0); Albumin/Globulin Ratio 0.7 (1.1-1.8); Alkaline Phosphatase 138 U/L (38-126); Anion Gap 11.9 mEq/L (5-15); Bilirubin,Total 0.7 mg/dl (0.2-1.3); Carbon Dioxide 27 mmol/L (22.0-30.0); Globulin 4.6 g/dL (1.3-3.2); Glucose 113 mg/dl (74-100); Magnesium 1.5 mg/dl (1.6-2.3); Total Protein,Serum 7.8 g/dl (6.3-8.2)
[2021-07-30 08:29] LABS: INR 2.04 (0.9-1.1); Prothrombin Time 21.9 seconds (10.1-12.5)
--- NOTE | 2021-07-30 10:00 | PC.NURSE ---
Ryan Zhou at bedside for LUMBAR PUNCTURE. Time out completed. Verbal order of 4mg Versed and 100 of fentanyl ordered IV once for procedure. LP attempted in side lying position. Patient then sat up for better access. CSF collected and sent to lab. Provider stated for patient to remain supine 1 hour
[2021-07-30 12:00] LABS: POC Glucose,Bedside 118 (70-110)
--- NOTE | 2021-07-30 13:43 | P.CONPHA_ITS ---
[facility] Pharmacy VTE Monitoring - Patient Demographics Admission date: 07/30/21 Report Date: 07/30/21 Time: 13:43 Allergies/Adverse Reactions: Patient Allergies No Known Allergies Allergy (Verified 07/04/21 06:02) Height: 1.88 m Weight: 80.031 kg Patient Problems: Current Active Problems Rapid atrial fibrillation (Acute) - VTE Risk Labs: VTE Related Lab Results Hgb 11.6 g/dL (14.1-18.0) L 07/30/21 07:48 Hct 36.3 % (42.0-52.0) L 07/30/21 07:48 Plt Count 194 K/mm3 (142-424) 07/30/21 07:48 PT 21.9 seconds (10.1-12.5) H 07/30/21 07:48 INR 2.04 (0.9-1.1) H 07/30/21 07:48 BUN 18 mg/dl (9-20) 07/30/21 07:48 Creatinine 0.80 mg/dl (0.66-1.25) 07/30/21 07:48 Estimated Creat Clear 80 mL/min (50-200) 07/30/21 07:48 VTE Risk Level: Moderate Risk - Prophylaxis Types of VTE Prophylaxis: TEDS Knee High, Pharmacological (WARFARIN ORDERED) Location of Applied Device: Not Applicable Pharmacologic Type: Warfarin
[2021-07-30 16:16] LABS: POC Glucose,Bedside 139 (70-110)
[2021-07-30 20:41] LABS: POC Glucose,Bedside 154 (70-110)
[2021-07-31] VITALS (7 sets, daily range): BP systolic 96–131; BP diastolic 69–78; PULSE 76–110; RESP 18–20; TEMP 36.7–37.2; O2SAT 92–100; BMI 23.1
--- NOTE | 2021-07-31 03:21 | PC.NURSE ---
Patient is A&O to person. Patient has appeared to have rested well. He has voiced no complaints to this RN. Patient has been turned Q2H. There is a stage 1 on his coccyx. Patient is on room air. Lung sounds are clear but diminished, patient remains in A-fib on telemetry. He has some trace generalized edema. VSS, call light within reach, bed alarm on, will continue to monitor.
[2021-07-31 06:15] LABS: POC Glucose,Bedside 92 (70-110)
[2021-07-31 07:19] LABS: Basophils # 0.1 K/mm3 (0-0.2); Basophils % 0.7 % (0.1-2.0); Eosinophils # 0.2 K/mm3 (0.0-0.4); Eosinophils % 3.4 % (0.1-12.0); Hematocrit 38.6 % (42.0-52.0); Hemoglobin 12.6 g/dL (14.1-18.0); Lymphocytes # 0.7 K/mm3 (0.7-4.5); Lymphocytes % 9.9 % (10-50); Mean Corpuscular HGB Conc 32.5 g/dL (31.8-35.4); Mean Corpuscular Volume 92.3 fl (80-94); Mean Platelet Volume 7.8 fl (7.4-10.4); Monocytes # 0.5 K/mm3 (0.1-1.0); Monocytes % 6.7 % (1.7-9.3); Neutrophils # 5.6 K/mm3 (1.8-7.8); Neutrophils % 79.2 % (37.0-80.0); Platelet Count 174 K/mm3 (142-424); Red Blood Count 4.18 M/mm3 (4.60-6.20); Red Cell Distribution Width 16.9 % (11.5-17.5); White Blood Count 7.1 K/mm3 (4.8-10.8)
[2021-07-31 07:24] LABS: INR 2.43 (0.9-1.1); Prothrombin Time 25.7 seconds (10.1-12.5)
[2021-07-31 08:35] LABS: Chloride 103 mmol/L (98-107); Potassium 4.9 mmoL/L (3.5-5.1); Sodium 135 mmol/L (136-145)
[2021-07-31 08:37] LABS: Blood Urea Nitrogen 14 mg/dl (9-20); Creatinine Clearance Estimated 82 mL/min (50-200); Estimated Glomerular Filt Rate 134 ml/min (>60); GFR (African American) 162 ML/MIN (>60)
--- NOTE | 2021-07-31 08:37 | HMH.ACPN2 ---
Internal Medicine - PN: Subj *Date: 07/31/21 *Time: 08:37 Interval history: Patient is alert, states that he feels much better this morning. Has not really eaten much food, is currently on a pur?ed diet. No complaints of chest pain or shortness of air. Exam Vital signs and Labs for Last 24 Hours: Temp Pulse Resp BP Pulse Ox 98.3 F 98 H 18 119/72 92 L 07/31/21 04:00 07/31/21 04:00 07/31/21 04:00 07/31/21 04:00 07/31/21 04:00 Laboratory Results - last 24 hr 07/30/21 11:51: POC Glucose 118 H 07/30/21 15:59: POC Glucose 139 H 07/30/21 20:31: POC Glucose 154 H 07/31/21 06:09: POC Glucose 92 07/31/21 07:03: PT 25.7 H, INR 2.43 H 07/31/21 07:03: WBC 7.1, RBC 4.18 L, Hgb 12.6 L, Hct 38.6 L, MCV 92.3, MCH 30.0, MCHC 32.5, RDW 16.9, Plt Count 174, MPV 7.8, Neut % (Auto) 79.2, Lymph % (Auto) 9.9 L, [place] % (Auto) 6.7, Eos % (Auto) 3.4, Baso % (Auto) 0.7, Neut # (Auto) 5.6, Lymph # (Auto) 0.7, [place] # (Auto) 0.5, Eos # (Auto) 0.2, Baso # (Auto) 0.1 07/31/21 07:03: Sodium 135 L, Potassium 4.9 D, Chloride 103 I & O for Last 24 hours: Intake & Output 07/28/21 07/29/21 07/30/21 07/31/21 11:59 11:59 11:59 11:59 Intake Total 1839 940 / 940 Output Total Balance 1839 / 1839 939 / 939 Weight 176 lb 7 oz 180 lb 5 oz Narrative: Heart rate irregular but much better rate control. Blood pressure acceptable. Valve sounds crisp. No murmurs. Extremities are warm and well-perfused. He is globally very weak. Still significantly demented with poor orientation to place and time. Abdomen soft and nontender. No rashes. No evidence of bleeding. Lungs have good air movement. Assessment and Plan (1) Encephalopathy Status: Acute Category: Medical Code(s): G93.40 - Encephalopathy, unspecified (2) Subtherapeutic international normalized ratio (INR) Status: Acute Category: Medical Code(s): R79.1 - Abnormal coagulation profile (3) Atrial fibrillation with RVR Status: Acute Category: Medical Code(s): I48.91 - Unspecified atrial fibrillation (4) Debility Status: Acute Category: Medical Code(s): R53.81 - Other malaise (5) Dementia Status: Chronic Category: Medical Code(s): F03.90 - Unspecified dementia without behavioral disturbance (6) Protein calorie malnutrition Status: Acute Category: Medical Code(s): E46 - Unspecified protein-calorie malnutrition - Assessment and plan all Dx Assessment and Plan for all problems:: INR pending this morning. Pharmacy consultation appreciated. Continue evaluation for diet appropriateness. Speech therapy evaluation today. PT/OT evaluation for senile debility and cachexia issues. Care management consult will contact family. There is a lot of concern about finances. They have assets in [place] that they do not wish to sell to qualify him for Medicaid. We will investigate whether or not home care would be suitable for this patient with hospice or home health.
[2021-07-31 08:38] LABS: Anion Gap 12.9 mEq/L (5-15); Calcium 8.6 mg/dl (8.4-10.2); Carbon Dioxide 24 mmol/L (22.0-30.0); Glucose 95 mg/dl (74-100); Magnesium 1.6 mg/dl (1.6-2.3)
--- NOTE | 2021-07-31 10:43 | HMH.PTEV ---
Physical Therapy Evaluation Rehab PT IP Evaluation Start: 07/30/21 19:02 Freq: ONCE Status: Active Protocol: Document 07/31/21 10:11 [email or web address] (Rec: 07/31/21 10:43 [email or web address] [id number]) Subjective/History History History This is the inital evaluation for Cheri Lynne. Pt is a 66- year-old man with mechanical heart valve, dementia, progressive debility, and recent Covid pneumonia 3 to 4 weeks ago. He had previously been admitted to [facility] and discharged to [facility] for rehab. Pt did not tolerate at home therapy and was returned back to [facility] due to medical needs. Pt shows uncontrolled tachyarrhythmia but has no extensive O2 requirments. - note done by Agatha Bustamante , SPT Subjective Subjective Pt states he is good today but doesn't know why he's in the hospital. Pt was a poor historian to current events. Pt states he was living in [facility] before admission to [facility]. Pt states he was walking before with no AD. Rehab PT IP Eval Objective Appearance Patient Behavior Appropriate,Cooperative, Distractible,Confused Patient Orientation Name,Birthday Speech Pattern Clear,Appropriate,Delayed, Monotone,Mumbled Ambulation Patient Able to Ambulate No Balance Ability to Arise Able, uses arms to help Sitting Balance Leans or slides in chair Standing Balance Unsteady Dynamic Sitting Balance Ability Good Dynamic Standing Balance Ability Poor Transfers Bed Transfer Ability Moderate x 2 (50% assist) Chair Transfer Ability Maximum x 2 (75% assist) Sit to Stand Bed Transfer Ability Maximum x 2 (75% assist) Sit to Stand Chair Transfer Ability Maximum x 2 (75% assist) Rehab PT IP prob,goals,plan Problems Date of Evaluation: 07/31/21 PT IP Problems Bed Mobility,Transfers,Gait, Balance,Self care,Safety Rehab Potential Rehab Potential Fair Equipment Needs Assistive Devices Rolling / Wheeled Walker Plan PT Inter
--- NOTE | 2021-07-31 10:43 | DIET.NUTRFU ---
Pt with severe malnutrition on pureed diet with PO intakes 75% + TID glucerna. He has speech eval pending, pureed diet given per ED MD. Pt with dementia, please encourage/cue at meal times.
--- NOTE | 2021-07-31 11:08 | HMH.OTEV ---
OT Inpatient Evaluation Rehab OT IP Evaluation Start: 07/31/21 08:36 Freq: ONCE Status: Complete Protocol: Document 07/31/21 10:56 CRIS (Rec: 07/31/21 11:08 CRIS [id number]) Rehab OT IP Assessment Subjective History Mr. Lynne is a 66-year-old man with mechanical heart valve, dementia, progressive debility , and recent Covid pneumonia 3 to 4 weeks ago. Had previously been admitted to [facility] and discharged to [place] for rehab. Patient was discharged from [facility] facility on Saturday due to being out of Medicare/rehab days. Patient's family elected to have him come home. Unfortunately after getting home he is required extensive care and assistance beyond their capabilities. Home health nurse arrived on Saturday to assess him when it was noted his INR was subtherapeutic at 2.4 (goal 2. 5-3.5 given mechanical valve). Additional concern for shortness of breath and A. fib with RVR. On assessment in the ER, patient was found to be tachycardic and in atrial fibrillation. Labs obtained showing subtherapeutic INR, otherwise labs at baseline for patient. Confusion and debility somewhat worse than last hospitalization. No significant oxygen requirement . Given inability of family to care for patient at home, has extensive nursing/care needs, and uncontrolled tachyarrhythmia, decision made to admit patient for further management. Subjective I can get up. Instructed Patient on proper hand/foot placement to complete supine->sit @ EOB
[2021-07-31 12:12] LABS: POC Glucose,Bedside 129 (70-110)
--- NOTE | 2021-07-31 13:10 | SW/DCPLANNER ---
Addendum entered by Maren Gilliam 08/01/21 07:36: SPOKE WITH DAUGHTERJARON VIA PHONE YESTERDAY AND SHE STATED SHE WANTS HER FATHER TO DISCHARGE HOME WITH HOSPICE AND THEY ARE GETTING EQUIPMENT IN THE HOME THIS MORNING.. SHE STATED WHEN HOME HEALTH CAME TO SEE HER DAD AFTER HE LEFT [facility] THEY FELT HE WOULD BE BETTER SERVED WITH HOSPICE AT HOME.. SHE IS ADAMANT SHE DOES NOT WANT HIM TO GO BACK TO THE CARE HOME.. THE PLAN IS FOR HIM TO DISCHARGE HOME TODAY WITH HOSPICE TO FOLLOW... Original Note: SENT REFERRAL TO [facility] PER REQUEST OF DAUGHTERJARON.. IF EQUIPMENT IS DELIVERED AND PATIENT REMAINS STABLE HE WILL DISCHARGE HOME IN THE AM (SATURDAY) WITH HOSPICE TO FOLLOW....
--- NOTE | 2021-07-31 14:32 | HMH.SLDYSPHA ---
Speech & Language Evaluation Speech/Language Dysphagia Evaluation Start: 07/31/21 14:26 Freq: ONCE Status: Active Protocol: Document 07/31/21 14:26 RHIANNON (Rec: 07/31/21 14:32 RHIANNON [id number]) Dysphagia Assess/Goals/Plan Assessment Date of Evaluation: 07/31/21 Evaluation Type Initial Certification Assessment/Problems Dysphagia Does Patient Qualify for Service No Qualify/Failure Comment Patient will be placed on mechanical soft diet with thin liquids via straw. Recommendations PHYSICIAN CERTIFICATION: The specified therapy services are required, authorized, and reviewed every 30 days. Diet Recommendations Mechanical Soft Liquid Type Recommendations Normal/Thin SL Swallow Guidelines Assist w/all meals,Standard Aspiration Prec. Dysphagia Swallow Precautions/Strategies Sitting Upright (90 deg), Liquids from Straw,Small Bites and Sips,Alternate Liquids/ Solids Plan Pt/Guardian verbally ack understanding Yes: RN and CM notified of dx/prognosis/goals G -code Required No General Information General Current Food Consistancy Pureed,Thin Liquids Dentition Poor Dentition Patient Orientation Person Ability to Follow Directions Fair Communication Ability Moderate Impairment Dysphagia:Food Presentation Evaluation Food Type Pureed,Mechanical Soft,Liquid, Pudding Dysphagia Evaluation Summary Mr. Lynne was given the following consistencies: thins via straw, pudding, pureed, and mechanical soft. No signs of dysphagia were noted during evaluation. Due to poor dentition, regular diet consistency was not attempted. Mr. Lynne required cues to continue chewing. He would benefit from assistance during mealtimes. Stroke Dysphagia Assessment PHYSICIAN CERTIFICATION: I certify the specified therapy services for Cheri Lynne are required, authorized, and reviewed every 30 days.
--- NOTE | 2021-07-31 19:56 | PC.NURSE ---
NO ACUTE CHANGES, SOME CONFUSION NOTED, UP TO CHAIR FOR MOST OF SHIFT AND TOLERATED WELL. Q 2 TURN WHILE IN BED. PT HAS BEEN IN AFIB ALL SIFT WITH RATE 90-100. BED ALARM AND OTHER SAFETY MEASURES IN PLACE.
[2021-07-31 21:48] LABS: POC Glucose,Bedside 154 (70-110)
[2021-07-31 21:54] LABS: POC Glucose,Bedside 115 (70-110)
[2021-08-01] VITALS: BP 114/73; PULSE 100; PULSE 99; RESP 17; TEMP 36.6; O2SAT 96
[2021-08-01 04:00] VITALS: BP 102/68; PULSE 108; PULSE 90; RESP 16; TEMP 36.6; O2SAT 95
[2021-08-01 05:10] VITALS: BMI 23.1
[2021-08-01 06:16] LABS: POC Glucose,Bedside 184 (70-110)
--- NOTE | 2021-08-01 06:19 | PC.NURSE ---
Patient pulled IV out this shift. No acute distress noted at this time, call light within reach, bed at lowest level for safety; will continue to monitor.
[2021-08-01 07:38] LABS: INR 2.63 (0.9-1.1); Prothrombin Time 27.7 seconds (10.1-12.5)
[2021-08-01 08:00] VITALS: BP 118/72; BP 130/83; PULSE 100; PULSE 86; RESP 18; RESP 20; TEMP 37; TEMP 37.7; O2SAT 90
--- NOTE | 2021-08-01 08:51 | HMH.DCSUM ---
General - General Admission date:: 07/29/21 Discharge date: 08/01/21 HPI HPI: Mr. Lynne is a 66-year-old man with mechanical heart valve, dementia, progressive debility, and recent Covid pneumonia 3 to 4 weeks ago. Had previously been admitted to [facility] and discharged to [place] for rehab. Patient was discharged from shelter facility on Saturday due to being out of Medicare/rehab days. Patient's family elected to have him come home. Unfortunately after getting home he is required extensive care and assistance beyond their capabilities. Home health nurse arrived on Saturday to assess him when it was noted his INR was subtherapeutic at 2.4 (goal 2.5-3.5 given mechanical valve). Additional concern for shortness of breath and A. fib with RVR. On assessment in the ER, patient was found to be tachycardic and in atrial fibrillation. Labs obtained showing subtherapeutic INR, otherwise labs at baseline for patient. Confusion and debility somewhat worse than last hospitalization. No significant oxygen requirement. Given inability of family to care for patient at home, has extensive nursing/care needs, and uncontrolled tachyarrhythmia, decision made to admit patient for further management. On assessment this morning he is pleasant but confused. Cannot tell me where he is. Oriented to person only. Denies any pain, shortness of breath, nausea. Was to be self aware of some of his confusion as he is very tearful when told it is okay after given several minutes to respond to questions and unable to answer where he is or what month it is. Of note he did finally answer that he is in [place], [place] (former place of residence) Hospital Course Hospital Course: 66-year-old male with atrial fibrillation, mechanical heart valve, chronic anticoagulation on warfarin, recent COVID-19 pneumonia. Presented with worsening debility, encephalopathy, and A. fib with RVR. Admitted to medicine for further management of acute conditions. Metoprolol was increased to a higher dose with gradual improvement in heart rate control. Adjustments were made to his INR during admission as well to achieve appropriate therapeutic INR between 2.5 and 3.5. Unfortunately Mr. Lynne continues to require significant assistance, showed marked confusion from baseline prior to Covid infection, and has had progressive decline over the past several weeks. Given patient's medical needs, primary team and case management discussed various options with patient's family. Options for discharge once medically stable included attempting long-term care placement or transitioning home. Given decline, comorbidities, and discussions with family, decision made to transition to hospice care and take family home when medically stable for discharge. Given improvement in heart rate control, goal INR, stable oxygen requirement, and hemodynamic stability, patient meeting discharge criteria. Examined on day of discharge. Hospice consulted and medical needs/DME needs provided in the home setting. Objective Vital signs: Temp Pulse Resp BP Pulse Ox 97.8 F 108 H 16 102/68 L 95 08/01/21 04:00 08/01/21 04:00 08/01/21 04:00 08/01/21 04:00 08/01/21 04:00 Narrative: - Constitutional no acute distress, thin, chronically ill appearing; bitemporal wasting, loss of periorbital fat. - *Routine HEENT Exam Head: Present: normocephalic Eye: Present: EOMI, PERRL ENT: Present: mucous membranes moist. Absent: dentition normal - *Routine Neck Exam Present: supple. Absent: lymphadenopathy - *Routine Respiratory Exam Present: CTA bilaterally, rhonchi. Absent: wheezes, crackles - *Routine Cardiovascular Exam Present: murmur (Mechanical click), irregularly irregular - *Routine Abdominal Exam Present: soft, normoactive bowel sounds. Absent: tenderness - *Routine Extremities Exam Absent: cyanosis, clubbing, edema; Sarcopenia - *Routine Skin Exam P
--- NOTE | 2021-08-01 10:02 | HMH.PHAINT ---
DISCHARGE EDUCATION COMPLETED. PATIENT HAD NO QUESTIONS
== END 2021-08-01 13:30 | disposition hospice, home (50) ==
LOC: ER 17:26 → 2ND 20:53
PROVIDERS: Admitting Provider Internal Medicine Adolescent Medicine; Emergency Provider Emergency Medicine; Visit Provider Internal Medicine Adolescent Medicine
DX: I48.91 Unspecified atrial fibrillation (principal); R79.1 Abnormal coagulation profile; I11.0 Hypertensive heart disease with heart failure; I50.9 Heart failure, unspecified; I25.10 Atherosclerotic heart disease of native coronary artery without angina pectoris; E11.9 Type 2 diabetes mellitus without complications; J44.9 Chronic obstructive pulmonary disease, unspecified; G93.40 Encephalopathy, unspecified; E46 Unspecified protein-calorie malnutrition; Z79.01 Long term (current) use of anticoagulants; Z79.899 Other long term (current) drug therapy; Z68.23 Body mass index [BMI] 23.0-23.9, adult; Z86.16 Personal history of COVID-19; Z20.822 Contact with and (suspected) exposure to COVID-19
CPT/HCPCS: G0378; 36415; 71045; 80048; 80053; 82962; 83690; 83735; 84484; 85025; 85610; 92610; 93005; 93041; 94640; 96365; 96375; 97162; 97165; 97530; 99284; C9803; U0003; U0005